=== PATIENT | female | born 1940 | race Caucasian/White ===

== ENCOUNTER 2016-09-22 20:03 | Inpatient (IN) | payer MEDICARE, BC ==
[~2016-09-22] VITALS: Ht 152.4 cm; Wt 88.8 kg
[~2016-09-22 20:03] MED LIST: AMLO2.5T PO; ASPI81 PO; ATOR10 PO; B COTAB3 PO; CELE20TA PO; DICL75 PO; ENAL2.5 PO; GLIP5 PO; LOPE2 PO; SITA100 PO; WAL-10TA2 PO; [UNRECOGNIZED DRUG - CODE] PO
[2016-09-22 20:05] VITALS: BP 138/79; PULSE 95; RESP 16; TEMP 98.1; O2SAT 96
[2016-09-22 20:29] VITALS: BP 135/77; PULSE 90; RESP 18; O2SAT 96
[2016-09-22] MEDS ORDERED: SITA1TAB2 PO (20:37)
[2016-09-22] MEDS ORDERED: GLIP5TAB8 PO (20:37)
[2016-09-22] MEDS ORDERED: MELA10CA PO (20:37)
[2016-09-22] MEDS ORDERED: AMLO5TAB2 PO (20:37)
[2016-09-22] MEDS ORDERED: XIFA200T4 PO (20:37)
[2016-09-22] MEDS ORDERED: [UNRECOGNIZED DRUG - CODE] PO (20:37)
[2016-09-22] MEDS ORDERED: ATOR10TA15 PO (20:37)
[2016-09-22] MEDS ORDERED: LORA10TA PO (20:37)
[2016-09-22] MEDS ORDERED: CITA20TA4 PO (20:37)
[2016-09-22] MEDS ORDERED: ERGO1CAP10 PO (20:37)
[2016-09-22] MEDS ORDERED: ENAL2.5T PO (20:37)
[2016-09-22] MEDS ORDERED: SODIUM CHLOR 0.9% 1000 ML INJ 1,000 ML IV SCH (20:50)
--- NOTE | 2016-09-22 20:55 | PD ---
HPI Chief Complaint: GI Complaint Time Seen by Provider: 20:52 Travel History International Travel<30 days: No Contact w/Intl Traveler<30days: No Traveled to known affect area: No History of Present Illness HPI 76-year-old female presents to the emergency department for evaluation of rectal bleeding. Patient states she has had bright red blood and dark red blood per the rectum since 1 PM this afternoon. She reports history of emphysema, diabetes, IBS. She states she has had over 30 episodes of diarrhea today. She states the diarrhea is typical for her, but not this bad. She states that she has had quite a bit of bright red bleeding and dark red blood per rectum. She states that her internal control consultant is Dr. Galeas. She denies any lightheadedness, dizziness. No chest pain or shortness of breath. No fevers or chills. She states that she has had similar symptoms previously and bleeding was due to diverticulosis. She denies any abdominal pain. No nausea or vomiting. PFSH Past Medical History Arthritis: Yes Blood Disorders: No Depression: Yes Cancer: No Cardiovascular Problems: No High Cholesterol: Yes Diabetes: Yes Patient Takes Glucophage: No Diminished Hearing: No Gastrointestinal Disorders: Yes (RECTAL BLEEDING, IBS) Genitourinary: No Hypertension: Yes Immune Disorder: No Musculoskeletal: No Neurologic: No Psychiatric: No Reproductive: No Respiratory: Yes (EMPHYSEMA) Influenza Vaccination: Yes Menopausal: Yes Ovarian Cysts: Yes Past Surgical History Abdominal Surgery: Yes (UMBILICAL HERNIA) Gynecologic Surgery: Yes (OVARY REMOVED) Other Surgery: Yes (NEUROMA REMOVED LEFT FOOT) Social History Alcohol Use: No Tobacco Use: No Substance Use: No Allergies-Medications (Allergen,Severity, Reaction): Coded Allergies: Flagyl (Verified Adverse Reaction, Intermediate, NAUSEA, 09/22/16) Reported Meds & Prescriptions Reported Meds & Active Scripts Active Reported Melatonin 10 Mg Cap PO DAILY Vitamin D (Ergocalciferol) 50,000 Unit Cap 50,000 Units PO Q7D Atorvastatin (Atorvastatin Calcium) 10 Mg Tab 10 Mg PO HS Citalopram (Citalopram Hydrobromide) 20 Mg Tab 20 Mg PO DAILY Amlodipine (Amlodipine Besylate) 5 Mg Tab 5 Mg PO DAILY Januvia (Sitagliptin Phosphate) 100 Mg Tab 100 Mg PO DAILY Imodium A-D Liq (Loperamide HCl) 1 Mg/7.5 Ml Liq 2 Mg PO DIRECTED PRN 2 mg (15 mL) after each loose stool. Not to exceed 16 mg (120 mL) per day. Glipizide 5 Mg Tab 5 Mg PO DAILY Take 30 minutes before a meal Enalapril (Enalapril Maleate) 2.5 Mg Tab 2.5 Mg PO DAILY Loratadine 10 Mg Tab 10 Mg PO DAILY Xifaxan (Rifaximin) 200 Mg Tab 200 Mg PO DAILY Review of Systems Except as stated in HPI: all other systems reviewed are Neg Physical Exam Narrative GENERAL: Well-nourished, well-developed female patient, ambulatory. Afebrile. SKIN: Focused skin assessment warm/dry. HEAD: Normocephalic. Atraumatic. EYES: No scleral icterus. No injection or drainage. NECK: Supple, trachea midline. No JVD or lymphadenopathy. CARDIOVASCULAR: Regular rate and rhythm without murmurs, gallops, or rubs. RESPIRATORY: Breath sounds equal bilaterally. No accessory muscle use. Lungs sounds are clear to auscultation. GASTROINTESTINAL: Abdomen soft, non-tender, nondistended. No abdominal pain to palpation. MUSCULOSKELETAL: No cyanosis, or edema. RECTAL EXAM: No masses or tenderness, stool is dark red. Hemoccult is grossly positive. This was done with nurse at bedside. Data Data Last Documented VS Vital Signs Date Time Temp Pulse Resp B/P Pulse Ox O2 Delivery O2 Flow Rate FiO2 09/22/16 20:29 90 18 135/77 96 Room Air 09/22/16 20:05 98.1 Orders Complete Blood Count With Diff (09/22/16 20:50) Comprehensive Metabolic Panel (09/22/16 20:50) Prothrombin Time / Inr (Pt) (09/22/16 20:50) Act Partial Throm Time (Ptt) (09/22/16 20:50) Urinalysis - C+S If Indicated (09/22/16 20:50) Type And Screen (09/22/16 20:50) Ecg Monitoring (09/22/16 20:50) Iv Access Insert/Monitor (09/22/16 20:50) Oximetry (09/22/16 20:50) Pantoprazole Inj (Protonix Inj) (09/22/16 21:00) Sodium Chlor 0.9% 1000 Ml Inj (Ns 1000 M (09/22/16 20:50) Sodium Chloride 0.9% Flush (Ns Flush) (09/22/16 21:00) Urine Culture (09/22/16 21:15) Ceftriaxone Inj (Rocephin Inj) (09/22/16 22:15) Labs Laboratory Tests Test 09/22/16 21:15 White Blood Count 15.7 TH/MM3 Red Blood Count 4.67 MIL/MM3 Hemoglobin 13.4 GM/DL Hematocrit 39.2 % Mean Corpuscular Volume 83.8 FL Mean Corpuscular Hemoglobin 28.7 PG Mean Corpuscular Hemoglobin 34.2 % Concent Red Cell Distribution Width 12.9 % Platelet Count 282 TH/MM3 Mean Platelet Volume 9.4 FL Neutrophils (%) (Auto) 69.7 % Lymphocytes (%) (Auto) 21.1 % Monocytes (%) (Auto) 7.4 % Eosinophils (%) (Auto) 1.1 % Basophils (%) (Auto) 0.7 % Neutrophils # (Auto) 11.0 TH/MM3 Lymphocytes # (Auto) 3.3 TH/MM3 Monocytes # (Auto) 1.2 TH/MM3 Eosinophils # (Auto) 0.2 TH/MM3 Basophils # (Auto) 0.1 TH/MM3 CBC Comment DIFF FINAL Differential Comment Prothrombin Time 11.4 SEC Prothromb Time International 1.0 RATIO Ratio Activated Partial 22.7 SEC Thromboplast Time Urine Color YELLOW Urine Turbidity HAZY Urine pH 5.5 Urine Specific [place] 1.022 Urine Protein TRACE mg/dL Urine Glucose (UA) NEG mg/dL Urine Ketones TRACE mg/dL Urine Occult Blood SMALL Urine Nitrite NEG Urine Bilirubin NEG Urine Urobilinogen LESS THAN 2.0 MG/DL Urine Leukocyte Esterase LARGE Urine RBC 12 /hpf Urine WBC /hpf Urine Squamous Epithelial 7 /hpf Cells Urine Transitional Epithelial 2 /hpf Cells Urine Renal Epithelial Cells <1 /hpf Urine Bacteria RARE /hpf Urine Mucus FEW /lpf Microscopic Urinalysis Comment CULTURE INDICATED Sodium Level 135 MEQ/L Potassium Level 4.3 MEQ/L Chloride Level 100 MEQ/L Carbon Dioxide Level 21.7 MEQ/L Anion Gap 13 MEQ/L Blood Urea Nitrogen 21 MG/DL Creatinine 0.87 MG/DL Estimat Glomerular Filtration 64 ML/MIN Rate Random Glucose 202 MG/DL Calcium Level 9.1 MG/DL Total Bilirubin 0.5 MG/DL Aspartate Amino Transf 20 U/L (AST/SGOT) Alanine Aminotransferase 32 U/L (ALT/SGPT) Alkaline Phosphatase 93 U/L Total Protein 8.0 GM/DL Albumin 3.8 GM/DL Blood Type B POSITIVE Antibody Screen NEGATIVE MDM Medical Decision Making Medical Screen Exam Complete: Yes Emergency Medical Condition: Yes Medical Record Reviewed: Yes Differential Diagnosis GI bleed versus diverticulosis versus anemia Narrative Course 76-year-old female presents to the emergency department for evaluation of rectal bleeding started at 1 PM this afternoon. Patient reports history of rectal bleeding and IBS. She states she is due for colonoscopy this year. CBC , CMP, PTT, PTT/INR, type and screen are ordered and pending. Patient is given Protonix 40 mg IV and normal saline 1 L IV bolus. CBC shows leukocytosis of 15.7. CMP shows no acute abnormality. Coags are unremarkable. UA shows large leukocyte esterase, innumerable WBC. Patient reports continuing blood via her rectum while in the emergency department. Patient will be brought in for 23 hour observation for repeat H&H as well as GI consult. Patient is given Rocephin 1 g IV for UTI. Patient is agreeable to this plan. [facility] is paged for admission. DARYL Portillo accepted admission. [facility] Point of Care Internal Pos. & Neg. Controls: Passed Fecal Specimen Occult Blood: Positive Diagnosis Primary Impression: GI bleed Qualified Code: K92.2 - Gastrointestinal hemorrhage, unspecified gastrointestinal hemorrhage type Additional Impression: UTI (urinary tract infection) Qualified Code: N30.01 - Acute cystitis with hematuria Admitting Information Admitting Physician Requests: Observation Grace Hunter Sep 22, 2016 20:55
[2016-09-22] MEDS ORDERED: SODIUM CHLORIDE 0.9% FLUSH 10 ML FLUSH IVF PRN (21:00)
[2016-09-22] MEDS ORDERED: PANTOPRAZOLE SODIUM 40 MG VIAL IVP ONE (21:00)
[2016-09-22 21:34] LABS: BASOPHIL # 0.1 TH/MM3 (0-0.2); BASOPHIL % 0.7 % (0.0-2.0); EOSINOPHIL # 0.2 TH/MM3 (0-0.4); EOSINOPHIL % 1.1 % (0.0-4.0); HEMATOCRIT 39.2 % (35.0-46.0); HEMO FLAGS DIFF FINAL; LYMPH % 21.1 % (9.0-44.0); LYMPHOCYTE # 3.3 TH/MM3 (1.0-4.8); MEAN CELL VOLUME 83.8 FL (80.0-100.0); MEAN CORPUSCULAR HEMOGLOBIN 28.7 PG (27.0-34.0); MEAN CORPUSCULAR HGB CONC 34.2 % (32.0-36.0); MONO % 7.4 % (0.0-8.0); NEUT % 69.7 % (16.0-70.0); PLATELET COUNT 282 TH/MM3 (150-450); RED BLOOD COUNT 4.67 MIL/MM3 (4.00-5.30); RED CELL DISTRIBUTION WIDTH 12.9 % (11.6-17.2); WHITE BLOOD COUNT 15.7 TH/MM3 (4.0-11.0)
[2016-09-22 21:44] LABS: BACTERIA, URINE RARE /hpf; BLOOD, URINE SMALL (NEG); COMMENT (UR) CULTURE INDICATED; CULTURE IF INDICATED CULTURE INDICATED; GLUCOSE,URINE NEG (NEG); KETONE, URINE TRACE mg/dL (NEG); MUCUS URINE FEW /lpf (OCC); NITRITE,URINE NEG (NEG); PH, URINE 5.5 (5.0-8.5); RENAL EPITHELIAL CELLS <1 /hpf; SQUAMOUS EPITHELIAL CELL URINE 7 /hpf (0-5); TRANSITIONAL EPI CELLS, URINE 2 /hpf; URINE COLOR YELLOW (YELLW/STRAW)
[2016-09-22 21:45] LABS: APTT (PATIENT) 22.7 SEC (24.3-30.1); PROTHROMBIN TIME - PATIENT 11.4 SEC (9.8-11.6)
[2016-09-22 21:53] LABS: ANION GAP 13 MEQ/L (5-15); BICARBONATE 21.7 MEQ/L (21.0-32.0); BLOOD UREA NITROGEN 21 MG/DL (7-18); CHLORIDE 100 MEQ/L (98-107); GLOMERULAR FILTRATION RATE 64 ML/MIN (>89); POTASSIUM 4.3 MEQ/L (3.5-5.1); SODIUM (NA) 135 MEQ/L (136-145)
[2016-09-22 21:56] LABS: ALKALINE PHOSPHATASE 93 U/L (45-117); ALT (GPT) 32 U/L (10-53); AST (GOT) 20 U/L (15-37); TOTAL BILIRUBIN ADULT 0.5 MG/DL (0.2-1.0)
[2016-09-22] MEDS ORDERED: cefTRIAXone INJ 1,000 MG in SODIUM CHLORIDE 0.9% INJ 100 ML IV ONE (22:15)
[2016-09-22 22:33] VITALS: RESP 18; O2SAT 100
[2016-09-23 00:44] VITALS: BP 136/78; PULSE 88; RESP 20; TEMP 98.2; O2SAT 98
[2016-09-23] MEDS ORDERED: SODIUM CHLORIDE 0.9% FLUSH 10 ML FLUSH IV FLUSH PRN (01:15)
[2016-09-23] MEDS ORDERED: cefTRIAXone INJ 1,000 MG in SODIUM CHLORIDE 0.9% INJ 100 ML IV SCH (01:15)
[2016-09-23] MEDS ORDERED: ACETAMINOPHEN 325 MG TAB PO PRN (01:15)
[2016-09-23] MEDS ORDERED: ONDANSETRON HCL 4 MG/2 ML VIAL IVP PRN (01:15)
[2016-09-23] MEDS ORDERED: NALOXONE HCL 0.4 MG/ML AMP IV PRN (01:15)
[2016-09-23] MEDS: SODIUM CHLOR 0.9% 1000 ML INJ 1,000 ML IV SCH ×3 (02:09→13:44)
[2016-09-23] MEDS: PANTOPRAZOLE SODIUM 40 MG VIAL IV PUSH SCH ×2 (02:27→10:16)
[2016-09-23 04:00] VITALS: BP 115/56; PULSE 84; RESP 20; TEMP 98.4; O2SAT 94
--- NOTE | 2016-09-23 08:08 | MH ---
cc: VANNESSA JACOBSON MD DATE OF ADMISSION 09/22/2016 CHIEF COMPLAINT Rectal bleeding HISTORY OF PRESENT ILLNESS This pleasant 76-year-old female, who has a history of irritable bowel syndrome. She apparently has had one bout of diverticular bleeding in the past several years ago. Last colonoscopy was about five years ago per her recollection. She was in her normal state of health. She states her stools seem to be a little thinner over the last two to three days and today around one o'clock, she developed painless bright red blood per rectum and occasional dark blood. She had no fever or chills. No abdominal pain. No nausea or vomiting. No chest pain. No shortness of breath. No dysuria. No flank pain. She does take a baby aspirin on a regular basis and has doubled up on it recently because of some right arm pain. She takes no other blood thinners. She contacted Dr. Galeas's office and they recommended she come into the hospital. She was seen in the emergency room. She was found to have a UTI and is being admitted for further care. MEDICATIONS ON ADMISSION Please see the chart. ALLERGIES FLAGYL PAST MEDICAL HISTORY Significant for: 1. Degenerative disc disease 2. Diabetes 3. Hyperlipidemia 4. COPD 5. IBS PAST SURGICAL HISTORY 1. Right oophorectomy 2. Abdominal hernia repair 3. Left foot neuroma removed SOCIAL HISTORY . Tobacco, smoked for over 40 years, but quit about 11 years ago. Alcohol, none. FAMILY HISTORY Noncontributory to this admission. REVIEW OF SYSTEMS The patient states her blood sugars run a little bit high. She is overweight, but this has remained stable. She occasionally has some fecal incontinence, but usually takes a half of an Imodium every night and this seems to control it most of the time. She denies any other specific changes in her overall health for 10-point review of systems. PHYSICAL EXAMINATION She is afebrile, heart rate 88, respirations 20, blood pressure 136/78, O2 sats 98% on room air. GENERAL: This is a 76-year-old female resting comfortably in bed in no acute distress. HEAD, EYES, EARS, NOSE, AND THROAT: Mucous membranes are moist. No jaundice. NECK: Supple CARDIOVASCULAR: Regular rate and rhythm. RESPIRATORY: A few scattered wheezes. GASTROINTESTINAL: Bowel sounds are present. No point tenderness, guarding or rebound. GENITOURINARY: No CVA tenderness. No suprapubic tenderness. MUSCULOSKELETAL: No edema. Homans is negative. No obvious deformities. NEUROLOGIC: Awake, alert and oriented x4. Speech was clear and fluent. Moving all extremities freely. INVESTIGATIONS/LABORATORY DATA White count is 15.7, hemoglobin 13.4, platelets are 282, INR is 1. Sodium 135, BUN 21, GFR is estimated at 64, glucose is 202. Urinalysis shows a large amount of leukocyte esterase. Culture is indicated. Urine cultures are pending. IMAGING No imaging studies have been obtained. Blood type is B+. Antibody screen is negative. IMPRESSION 1. Painless rectal bleeding with a history of diverticular Disease. 2. Leukocytosis 3. Urinary tract infection 4. Hyponatremia 5. Diabetes mellitus 6. Hyperlipidemia 7. COPD 8. History of IBS. DISCUSSION The patient is placed on observation status to Dr. Jacobson's service. The plan is to keep her NPO overnight, place her on IV fluids. IV antibiotics have been started in the emergency room. A Proton pump inhibitor will be continued. We will consult her national business director, Dr. Galeas. We will repeat labs in the morning to avoid any anticoagulants or blood thinners and we will make further recommendations as her case progresses. If not further bleeding occurs, then she should be discharge in the next 48 hours (the patient has not had any bleeding since being in the hospital). Please see the chart for further details. Dictated by: Vadim Jones PA-C MD ROSA MARIA Wells/TERESA /1:49 AM /7:48 AM PT is seen & Examined d/w PT d/w Vadim [place] Orders see H&P by vadim GI input appreciated for EGD/ cscope f/u H/H IVF PPI empiric abx accu checks w ssi am labs will f/u Vannessa Jacobson MD Sep 23, 2016 10:44 MTDD
--- NOTE | 2016-09-23 09:52 | MB ---
cc: TANNA GIPSON M.D., STEVEN D. D.O. STELLA, GREGORY J. M.D. DATE OF CONSULTATION: 09/23/[address] Tanna Gipson. HISTORY OF PRESENT ILLNESS The patient is an inpatient. She is a pleasant 76-year-old white female I was asked to see for further evaluation and management of GI bleeding. She had been taking one baby aspirin per day but about three weeks ago because of some right upper extremity pain she started taking two aspirin tablets three times per day. Yesterday she began experiencing passage of red to maroon blood per rectum, no pain or discomfort. She had a previous episode like this in the past and was found to have a diverticular bleed. No lightheadedness or dizziness. She takes no strong blood thinners. MEDICAL HISTORY 1. Degenerative disk disease. 2. Diabetes. 3. Hyperlipidemia. 4. COPD. 5. Mild chronic diarrheal problem. PAST SURGICAL HISTORY 1. Right oophorectomy. 2. Abdominal herniorrhaphy. 3. Left foot neuroma. ALLERGIES FLAGYL. SOCIAL HISTORY Tobacco use: None. Alcohol use: None. FAMILY HISTORY Unremarkable for GI disorders. REVIEW OF SYSTEMS No recent headaches. No history of seizures or strokes. No lightheadedness or dizziness. No dyspnea. No chest pains or palpitations. No coughing. No urinary symptoms. No dysphagia or odynophagia or heartburn. Her weight has been stable. MEDICATIONS Medications here in the hospital include: 1. Ceftriaxone. 2. Pantoprazole IV injection 40 mg per day. 3. Tylenol. 4. Zofran. PHYSICAL EXAMINATION VITAL SIGNS: Physical examination reveals a weight of 99 kilograms, temperature 98.4, pulse 84, blood pressure 115/56, saturation 94%. GENERAL: She is alert. She is oriented x3. She is overweight. HEENT: She is anicteric. Extraocular motions are intact. I appreciate no submandibular, cervical, supraclavicular, axillary epitrochlear adenopathy. Right axillary lipoma is palpable. LUNGS: Lungs are clear to auscultation. HEART: Regular rate and rhythm with no gross murmur or gallop. ABDOMEN: Good bowel sounds. No bruit. The abdomen is soft and essentially nontender with vague discomfort on palpation of the right upper quadrant. No masses or hepatosplenomegaly are noted. No pedal edema, Dupuytren's contractures or palmar erythema. RECTAL: Fair to good sphincter tone. Maroon blood in the rectal vault. LABORATORY FINDINGS On admission last evening with white count 15.7, hemoglobin 13.4, platelets 282, INR 1.0. Sodium 135, potassium 4.3, BUN 21, creatinine 0.87. Liver enzymes normal. IMPRESSION GI bleeding with passage of maroon stool in this patient who recently has been taking six aspirin tablets per day for the past 3 weeks. With the elevated BUN to creatinine ratio we discussed the possibility of an upper GI bleed from ulcer disease with rapid transit. We discussed colonic bleeding especially with her history of diverticular bleeding. We discussed the smaller possibility of a small intestine bleed. Because of the continued bleeding every few hours we will keep her in the hospital. We will prep her today for panendoscopy and colonoscopy tomorrow. I reviewed the procedures with her, including potential risks of medication reaction, bleeding, perforation and a small chance of missing a lesion. She understands and agrees to proceed with this plan. MD CHELLE Sanchez/JAVY /9:23 AM /9:32 AM
[2016-09-23] MEDS: SODIUM CHLORIDE 0.9% FLUSH 10 ML FLUSH IV FLUSH SCH ×2 (10:15→21:00)
--- NOTE | 2016-09-23 10:44 | HHI.PR ---
Objective Objective Results - Vital Signs Date Time Temp Pulse Resp B/P Pulse Ox O2 Delivery O2 Flow Rate FiO2 09/23/16 04:00 Room Air 09/23/16 04:00 98.4 84 20 115/56 94 09/23/16 00:44 Room Air 09/23/16 00:44 98.2 88 20 136/78 98 09/22/16 22:33 18 100 Room Air 09/22/16 20:29 90 18 135/77 96 Room Air 09/22/16 20:05 98.1 95 16 138/79 96 I/O 09/22/16 09/22/16 09/22/16 09/23/16 09/23/16 09/23/16 07:00 15:00 23:00 07:00 15:00 23:00 Intake Total 260 ml Balance 260 ml Intake IV Total 260 ml # Voids 4 1 # Bowel Movements 2 Result Diagram: 09/22/16211409/22/162114 Other Results Laboratory Tests Test 09/22/16 21:15 White Blood Count 15.7 Red Blood Count 4.67 Hemoglobin 13.4 Hematocrit 39.2 Mean Corpuscular Volume 83.8 Mean Corpuscular Hemoglobin 28.7 Mean Corpuscular Hemoglobin 34.2 Concent Red Cell Distribution Width 12.9 Platelet Count 282 Mean Platelet Volume 9.4 Neutrophils (%) (Auto) 69.7 Lymphocytes (%) (Auto) 21.1 Monocytes (%) (Auto) 7.4 Eosinophils (%) (Auto) 1.1 Basophils (%) (Auto) 0.7 Neutrophils # (Auto) 11.0 Lymphocytes # (Auto) 3.3 Monocytes # (Auto) 1.2 Eosinophils # (Auto) 0.2 Basophils # (Auto) 0.1 CBC Comment DIFF FINAL Differential Comment Prothrombin Time 11.4 Prothromb Time International 1.0 Ratio Activated Partial 22.7 Thromboplast Time Urine Color YELLOW Urine Turbidity HAZY Urine pH 5.5 Urine Specific [place] 1.022 Urine Protein TRACE Urine Glucose (UA) NEG Urine Ketones TRACE Urine Occult Blood SMALL Urine Nitrite NEG Urine Bilirubin NEG Urine Urobilinogen LESS THAN 2.0 Urine Leukocyte Esterase LARGE Urine RBC 12 Urine WBC Urine Squamous Epithelial 7 Cells Urine Transitional Epithelial 2 Cells Urine Renal Epithelial Cells <1 Urine Bacteria RARE Urine Mucus FEW Microscopic Urinalysis Comment CULTURE INDICATED Sodium Level 135 Potassium Level 4.3 Chloride Level 100 Carbon Dioxide Level 21.7 Anion Gap 13 Blood Urea Nitrogen 21 Creatinine 0.87 Estimat Glomerular Filtration 64 Rate Random Glucose 202 Calcium Level 9.1 Total Bilirubin 0.5 Aspartate Amino Transf 20 (AST/SGOT) Alanine Aminotransferase 32 (ALT/SGPT) Alkaline Phosphatase 93 Total Protein 8.0 Albumin 3.8 Blood Type B POSITIVE Antibody Screen NEGATIVE Date/Time Procedure Status Source Growth 09/22/16 21:15 Urine Culture Received Urine Random Urine Pending Physical Exam Physical Exam PT is seen & Examined d/w PT d/w Vadim See Orders see H&P by vadim GI input appreciated for EGD/ cscope f/u H/H IVF PPI empiric abx accu checks w ssi am labs will f/u Sunitha Jacobson MD Sep 23, 2016 10:44
[2016-09-23] MEDS ORDERED: GLUCAGON 1 MG/ML VIAL OTHER PRN (10:45)
[2016-09-23] MEDS ORDERED: DEXTROSE 50% IN WATER 50 ML VIAL(D50) IV PUSH PRN (10:45)
[2016-09-23] MEDS ORDERED: PEG (High)/E-LYTE SOLN 4000 ML BTL PO ONE (11:00)
[2016-09-23 11:23] VITALS: BP 142/67; PULSE 97; RESP 18; O2SAT 96
[2016-09-23] MEDS: INSULIN ASPART SUPPLEMENTAL SCALE SQ SCH ×3 (11:38→21:02)
[2016-09-23 12:30] LABS: HEMATOCRIT 28.1 % (35.0-46.0); REVIEW FLAG FINAL
[2016-09-23 16:30] VITALS: BP 134/58; PULSE 95; RESP 18; TEMP 98.8; O2SAT 94
[2016-09-23 20:00] VITALS: BP 139/67; PULSE 100; RESP 18; TEMP 98.6; O2SAT 95
[2016-09-23] MEDS: ATORVASTATIN 10 MG TAB PO SCH (20:59)
[2016-09-23] MEDS: cefTRIAXone INJ 1,000 MG in SODIUM CHLORIDE 0.9% INJ 100 ML IV SCH (21:00)
[2016-09-24] VITALS (8 sets, daily range): BP systolic 106–148; BP diastolic 52–65; PULSE 84–104; RESP 16–20; TEMP 97.6–98.9; O2SAT 94–98
[2016-09-24] MEDS: INSULIN ASPART SUPPLEMENTAL SCALE SQ SCH ×4 (06:01→21:06)
[2016-09-24] MEDS: SODIUM CHLOR 0.9% 1000 ML INJ 1,000 ML IV SCH (06:02)
[2016-09-24 06:49] LABS: AUTOMATED NEUTROPHIL # 5.9 TH/MM3 (1.8-7.7); BASOPHIL # 0.1 TH/MM3 (0-0.2); BASOPHIL % 0.7 % (0.0-2.0); EOSINOPHIL # 0.1 TH/MM3 (0-0.4); EOSINOPHIL % 0.9 % (0.0-4.0); HEMATOCRIT 22.3 % (35.0-46.0); HEMO FLAGS DIFF FINAL; LYMPH % 34.4 % (9.0-44.0); LYMPHOCYTE # 3.6 TH/MM3 (1.0-4.8); MEAN CELL VOLUME 84.7 FL (80.0-100.0); MEAN CORPUSCULAR HEMOGLOBIN 28.8 PG (27.0-34.0); MEAN CORPUSCULAR HGB CONC 34.1 % (32.0-36.0); MONO % 7.6 % (0.0-8.0); NEUT % 56.4 % (16.0-70.0); PLATELET COUNT 197 TH/MM3 (150-450); RED BLOOD COUNT 2.63 MIL/MM3 (4.00-5.30); RED CELL DISTRIBUTION WIDTH 12.5 % (11.6-17.2); WHITE BLOOD COUNT 10.4 TH/MM3 (4.0-11.0)
[2016-09-24 06:54] LABS: BICARBONATE 23.5 MEQ/L (21.0-32.0); POTASSIUM 3.6 MEQ/L (3.5-5.1)
[2016-09-24] MEDS ORDERED: PROPOFOL 200 MG/20 ML AMP IV ONE (10:02)
[2016-09-24] MEDS: CITALOPRAM HYDROBROMIDE 20 MG TAB PO SCH (10:21)
[2016-09-24] MEDS: amLODIPine BESYLATE 5 MG TAB PO SCH (10:21)
[2016-09-24] MEDS: RIFAXIMIN 200 MG TAB PO SCH (10:21)
[2016-09-24] MEDS: LORATADINE 10 MG TAB PO SCH (10:21)
[2016-09-24] MEDS: PANTOPRAZOLE SODIUM 40 MG VIAL IV PUSH SCH (10:22)
[2016-09-24] MEDS: SODIUM CHLORIDE 0.9% FLUSH 10 ML FLUSH IV FLUSH SCH ×2 (10:22→21:05)
--- NOTE | 2016-09-24 12:33 | HHI.PR ---
Subjective Subjective Remarks had EGD and colonoscopy today small amount of blood in stool today no n/v tolerating clear liquid diet well no abd. pain no cp no sob pale Review of Systems Constitutional Constitutional Remarks 12 point ROS completed, negative except as noted above Vitals/Results Intake & Output 09/23/16 09/23/16 09/24/16 14:59 22:59 06:59 Intake Total 800 ml 800 ml Balance 800 ml 800 ml Intake IV Total 800 ml 800 ml # Voids 1 3 # Bowel Movements 2 3 Vital Signs Vital Signs Date Time Temp Pulse Resp B/P Pulse Ox O2 Delivery O2 Flow Rate FiO2 09/24/16 09:35 77 16 101/57 96 09/24/16 09:25 78 16 106/60 96 09/24/16 09:15 98.7 79 16 99/51 96 09/24/16 04:00 98.7 86 18 131/59 95 09/24/16 00:00 98.7 92 18 106/52 95 09/23/16 20:00 98.6 100 18 139/67 95 09/23/16 20:00 Room Air 09/23/16 17:00 Room Air 09/23/16 16:30 98.8 95 18 134/58 94 CBC/BMP: 09/24/16 0555 09/24/16 0555 Lab Results Laboratory Tests Test 09/24/16 05:55 White Blood Count 10.4 TH/MM3 Red Blood Count 2.63 MIL/MM3 Hemoglobin 7.6 GM/DL Hematocrit 22.3 % Mean Corpuscular Volume 84.7 FL Mean Corpuscular Hemoglobin 28.8 PG Mean Corpuscular Hemoglobin 34.1 % Concent Red Cell Distribution Width 12.5 % Platelet Count 197 TH/MM3 Mean Platelet Volume 8.5 FL Neutrophils (%) (Auto) 56.4 % Lymphocytes (%) (Auto) 34.4 % Monocytes (%) (Auto) 7.6 % Eosinophils (%) (Auto) 0.9 % Basophils (%) (Auto) 0.7 % Neutrophils # (Auto) 5.9 TH/MM3 Lymphocytes # (Auto) 3.6 TH/MM3 Monocytes # (Auto) 0.8 TH/MM3 Eosinophils # (Auto) 0.1 TH/MM3 Basophils # (Auto) 0.1 TH/MM3 CBC Comment DIFF FINAL Differential Comment Sodium Level 140 MEQ/L Potassium Level 3.6 MEQ/L Chloride Level 107 MEQ/L Carbon Dioxide Level 23.5 MEQ/L Anion Gap 10 MEQ/L Blood Urea Nitrogen 11 MG/DL Creatinine 0.63 MG/DL Estimat Glomerular Filtration 92 ML/MIN Rate Random Glucose 165 MG/DL Calcium Level 8.3 MG/DL Physical Exam General General Appearance: Well Developed, Well Nourished, No Acute Distress, Comfortable, Pale Eyes Eye Exam: Pupils Equal, Pupils Reactive Ears & Nose Ears & Nose Exam: Nasal Mucosa [place] Throat Throat Exam: Oral Mucosa [place] & Moist Neck Neck Exam: Neck Supple, Trachea Midline Pulmonary Resp Exam: Clear Bilaterally Cardiology CV Exam: Regular, Good Perfusion Gastrointestinal/Abdomen GI Exam: Soft, Non-Tender, Bowel Sounds Present, Non-Distended Musculoskeletal MS Exam: Joints Intact Integumentary Skin Exam: Warm, Dry Extremeties Extremities Exam: No Edema, Pedal Pulses Palpable Neurologic Neuro Exam: Alert, Awake, Oriented, Speech Clear, Moving All Extremities, No Focal Deficits Psychiatric Psych Exam: Appropriate Responses VTE Prophylaxis VTE Prophylaxis Device: SCDs PUD Prophylasis PUD Prophylaxis: Protonix Assessment/Plan Problem List: (1) UTI (urinary tract infection) (2) GI bleed Assessment/Plan 1. Painless rectal bleeding with a history of diverticular Disease. 2. Leukocytosis 3. Urinary tract infection 4. Hyponatremia 5. Diabetes mellitus 6. Hyperlipidemia 7. COPD 8. History of IBS. Plan: appreciate GI input S/P colonoscopy and EGD 09/24, gastric erosion, diverticulosis. No active bleeding capsule endoscopy as OP recommended HH dropped today 7.6/22.3, will give 2 units PRBC today CBC in am continue clear liquid diet continue PPI Continue abx UC mixed dillan, poss. contaminant Continue with Accu-Cheks before meals and at bedtime and insulin therapy Continue with home medications CBC and BMP in the morning Continue with Protonix for GI prophylaxis SCDs for DVT prophylaxis Possible discharge in the morning if hemoglobin stable D/W RN D/W Dr. Jacobson D/W pt. This patient was seen by myself and Dr. Jacobson, this note is written on his behalf Problem Qualifiers (1) UTI (urinary tract infection): Qualified Code: N30.01 - Acute cystitis with hematuria (2) GI bleed: Qualified Code: K92.2 - Gastrointestinal hemorrhage, unspecified gastrointestinal hemorrhage type Pham RodriguezP Sep 24, 2016 12:33
[2016-09-24] MEDS ORDERED: FUROSEMIDE 20 MG/2 ML VIAL IV ONE (12:45)
[2016-09-24] MEDS ORDERED: SODIUM CHLOR 0.9% 250 ML INJ 250 ML IV ONE (12:45)
[2016-09-24] MEDS: cefTRIAXone INJ 1,000 MG in SODIUM CHLORIDE 0.9% INJ 100 ML IV SCH (21:05)
[2016-09-24] MEDS: ATORVASTATIN 10 MG TAB PO SCH (21:05)
[2016-09-25 00:01] VITALS: BP 117/56; PULSE 84; RESP 20; TEMP 98.5; O2SAT 96
[2016-09-25 00:13] VITALS: BP 155/72; PULSE 83; RESP 18; TEMP 98.2; O2SAT 96
[2016-09-25 03:50] VITALS: BP 134/61; PULSE 80; RESP 16; TEMP 98.3; O2SAT 95
[2016-09-25 04:00] VITALS: BP 122/88; PULSE 76; RESP 20; TEMP 98.4; O2SAT 98
[2016-09-25] MEDS: INSULIN ASPART SUPPLEMENTAL SCALE SQ SCH ×2 (06:01→12:26)
[2016-09-25 08:00] VITALS: BP 123/75; PULSE 86; RESP 16; TEMP 98.5; O2SAT 94
[2016-09-25 08:30] LABS: HEMATOCRIT 30.3 % (35.0-46.0); MEAN CELL VOLUME 83.7 FL (80.0-100.0); MEAN CORPUSCULAR HEMOGLOBIN 28.6 PG (27.0-34.0); MEAN CORPUSCULAR HGB CONC 34.2 % (32.0-36.0); PLATELET COUNT 220 TH/MM3 (150-450); RED BLOOD COUNT 3.62 MIL/MM3 (4.00-5.30); REVIEW FLAG FINAL; WHITE BLOOD COUNT 11.4 TH/MM3 (4.0-11.0)
[2016-09-25 08:58] LABS: BICARBONATE 26.1 MEQ/L (21.0-32.0); POTASSIUM 3.2 MEQ/L (3.5-5.1)
[2016-09-25] MEDS: RIFAXIMIN 200 MG TAB PO SCH (08:59)
[2016-09-25] MEDS: CITALOPRAM HYDROBROMIDE 20 MG TAB PO SCH (08:59)
[2016-09-25] MEDS: PANTOPRAZOLE SODIUM 40 MG VIAL IV PUSH SCH (09:00)
[2016-09-25] MEDS: LORATADINE 10 MG TAB PO SCH (09:00)
[2016-09-25] MEDS: amLODIPine BESYLATE 5 MG TAB PO SCH (09:00)
[2016-09-25] MEDS: SODIUM CHLORIDE 0.9% FLUSH 10 ML FLUSH IV FLUSH SCH (09:01)
[2016-09-25] MEDS ORDERED: PROT40TA PO (11:21)
--- NOTE | 2016-09-25 11:22 | HHI.DCPOC ---
Discharge Care Plan Diagnosis: (1) UTI (urinary tract infection) (2) GI bleed Your Health Problems Are: Appetite Changes Bleeding Tendency Goals to Promote Your Health * To prevent worsening of your condition and complications * To maintain your health at the optimal level Directions to Meet Your Goals Take your medications as prescribed Follow your dietary instruction Follow activity as directed Keep your appointments as scheduled Take your immunizations and boosters as scheduled If your symptoms worsen call your PCP, if no PCP go to Urgent Care Center or Emergency Room Smoking is Dangerous to Your Health. Avoid second hand smoke Call the 24-hour hour crisis hotline for domestic abuse at [facility]am Rodriguez. [facility] Sep 25, 2016 11:22
--- NOTE | 2016-09-25 11:26 | HHI.PR ---
Subjective Subjective Remarks no bloody stools no abd. pain no n/v no fever HH up to 12./37.1 no cp, no sob at bsd Review of Systems Constitutional Constitutional Remarks 12 point ROS completed, negative except as noted above Vitals/Results Intake & Output 09/24/16 09/24/16 09/25/16 15:00 23:00 07:00 Intake Total 1300 ml 80 ml 120 ml Balance 1300 ml 80 ml 120 ml Intake Oral 80 ml 120 ml IV Total 900 ml Other 400 ml # Voids 1 1 # Bowel Movements 1 Vital Signs Vital Signs Date Time Temp Pulse Resp B/P Pulse Ox O2 Delivery O2 Flow Rate FiO2 09/25/16 10:11 Room Air 09/25/16 08:00 98.5 86 16 123/75 94 09/25/16 04:00 98.4 76 20 122/88 98 09/25/16 03:50 98.3 80 16 134/61 95 09/25/16 00:13 98.2 83 18 155/72 96 09/25/16 00:01 98.5 84 20 117/56 96 09/24/16 23:56 98.5 84 20 117/56 96 09/24/16 21:00 98.2 87 16 124/60 96 09/24/16 20:00 98.9 87 16 148/65 94 09/24/16 20:00 Room Air 09/24/16 17:16 98.9 88 16 123/60 98 09/24/16 16:48 98.5 96 16 141/62 96 09/24/16 16:00 97.6 104 19 125/63 96 CBC/BMP: 09/25/16 0710 09/25/16 0710 Lab Results Laboratory Tests Test 09/24/16 09/25/16 12:46 07:10 Blood Type B POSITIVE Crossmatch Leukocyte-Reduced Red Blood Cells Blood Bank Comment White Blood Count 11.4 TH/MM3 Red Blood Count 3.62 MIL/MM3 Hemoglobin 10.4 GM/DL Hematocrit 30.3 % Mean Corpuscular Volume 83.7 FL Mean Corpuscular Hemoglobin 28.6 PG Mean Corpuscular Hemoglobin 34.2 % Concent Red Cell Distribution Width 13.0 % Platelet Count 220 TH/MM3 Mean Platelet Volume 8.4 FL Sodium Level 138 MEQ/L Potassium Level 3.2 MEQ/L Chloride Level 104 MEQ/L Carbon Dioxide Level 26.1 MEQ/L Anion Gap 8 MEQ/L Blood Urea Nitrogen 7 MG/DL Creatinine 0.76 MG/DL Estimat Glomerular Filtration 74 ML/MIN Rate Random Glucose 160 MG/DL Calcium Level 8.4 MG/DL Physical Exam General General Appearance: Well Developed, Well Nourished, No Acute Distress, Comfortable, Pale Eyes Eye Exam: Pupils Equal, Pupils Reactive Ears & Nose Ears & Nose Exam: Nasal Mucosa [place] Throat Throat Exam: Oral Mucosa [place] & Moist Neck Neck Exam: Neck Supple, Trachea Midline Pulmonary Resp Exam: Clear Bilaterally Cardiology CV Exam: Regular, Good Perfusion Gastrointestinal/Abdomen GI Exam: Soft, Non-Tender, Bowel Sounds Present, Non-Distended Musculoskeletal MS Exam: Joints Intact Integumentary Skin Exam: Warm, Dry Extremeties Extremities Exam: No Edema, Pedal Pulses Palpable Neurologic Neuro Exam: Alert, Awake, Oriented, Speech Clear, Moving All Extremities, No Focal Deficits Psychiatric Psych Exam: Appropriate Responses VTE Prophylaxis VTE Prophylaxis Device: SCDs PUD Prophylasis PUD Prophylaxis: Protonix Assessment/Plan Problem List: (1) UTI (urinary tract infection) (2) GI bleed Assessment/Plan 1. Painless rectal bleeding with a history of diverticular Disease. 2. Leukocytosis 3. Urinary tract infection 4. Hyponatremia 5. Diabetes mellitus 6. Hyperlipidemia 7. COPD 8. History of IBS. Plan: appreciate GI input S/P colonoscopy and EGD 09/24, gastric erosion, diverticulosis. No active bleeding capsule endoscopy as OP recommended HH dropped 7.6/22.3, S/P 2 units PRBC 09/24 HH up to 12.3/37.1 continue PPI avoid nuts, popcorn adv diet no more rectal bleeding, HH stable. Continue abx-no need for PO abx at discharge UC mixed dillan, poss. contaminant Continue with Accu-Cheks before meals and at bedtime and insulin therapy Continue with home medications Labs reviewed stable Tolerating diet, no bleeding stable for discharge home F/U GI 2 weeks, need capsule endoscopy Diet-diverticulitis diet, verbalizes understanding Activity-as tolerated Instructed to continue PPI, avoid NSAIDs, ASA D/W RN D/W Dr. Jacobson D/W pt. and This patient was seen by myself and Dr. Jacobson, this note is written on his behalf Discharge Minutes: 45 Problem Qualifiers (1) UTI (urinary tract infection): Qualified Code: N30.01 - Acute cystitis with hematuria (2) GI bleed: Qualified Code: K92.2 - Gastrointestinal hemorrhage, unspecified gastrointestinal hemorrhage type Pham Rodriguez [facility] Sep 25, 2016 11:26
--- NOTE | 2016-09-25 11:27 | HHI.DS ---
Discharge Summary Admission Date Sep 24, 2016 at 09:42 Discharge Date: Sep 25, 2016 Admitting Diagnosis GI bleed, UTI (1) GI bleed Diagnosis: Principal (2) UTI (urinary tract infection) Procedures S/P colonoscopy and EGD 09/24, gastric erosion, diverticulosis. No active bleeding CBC/BMP: 09/25/16 0710 09/25/16 0710 Significant Findings Laboratory Tests Test 09/22/16 09/23/16 09/24/16 09/25/16 21:15 11:59 05:55 07:10 White Blood Count 15.7 TH/MM3 11.4 TH/MM3 (4.0-11.0) (4.0-11.0) Neutrophils # (Auto) 11.0 TH/MM3 (1.8-7.7) Monocytes # (Auto) 1.2 TH/MM3 (0-0.9) Activated Partial 22.7 SEC Thromboplast Time (24.3-30.1) Urine Turbidity HAZY (CLEAR) Urine Ketones TRACE mg/dL (NEG) Urine Occult Blood SMALL (NEG) Urine Leukocyte Esterase LARGE (NEG) Urine RBC 12 /hpf (0-3) Urine Bacteria RARE /hpf (NONE) Urine Mucus FEW /lpf (OCC) Sodium Level 135 MEQ/L (136-145) Blood Urea Nitrogen 21 MG/DL (7-18) Estimat Glomerular Filtration 64 ML/MIN (>89) 74 ML/MIN (>89) Rate Random Glucose 202 MG/DL 165 MG/DL 160 MG/DL (74-106) (74-106) (74-106) Hemoglobin 9.8 GM/DL 7.6 GM/DL 10.4 GM/DL (11.6-15.3) (11.6-15.3) (11.6-15.3) Hematocrit 28.1 % 22.3 % 30.3 % (35.0-46.0) (35.0-46.0) (35.0-46.0) Red Blood Count 2.63 MIL/MM3 3.62 MIL/MM3 (4.00-5.30) (4.00-5.30) Calcium Level 8.3 MG/DL 8.4 MG/DL (8.5-10.1) (8.5-10.1) Potassium Level 3.2 MEQ/L (3.5-5.1) Hospital Course This pleasant 76-year-old female, who has a history of irritable bowel syndrome. She apparently has had one bout of diverticular bleeding in the past several years ago. Last colonoscopy was about five years ago per her recollection. She was in her normal state of health. She states her stools seem to be a little thinner over the last two to three days and today around one o'clock, she developed painless bright red blood per rectum and occasional dark blood. She had no fever or chills. No abdominal pain. No nausea or vomiting. No chest pain. No shortness of breath. No dysuria. No flank pain. She does take a baby aspirin on a regular basis and has doubled up on it recently because of some right arm pain. She takes no other blood thinners. She contacted Dr. Galeas's office and they recommended she come into the hospital. She was seen in the emergency room. She was found to have a UTI and was admitted for further care for: 1. Painless rectal bleeding with a history of diverticular Disease. 2. Leukocytosis 3. Urinary tract infection 4. Hyponatremia 5. Diabetes mellitus 6. Hyperlipidemia 7. COPD 8. History of IBS. During the course of the hospitalization, the following took place: GI consulted, put on PPI, IVF, serial HH GI recommended work up. S/P colonoscopy and EGD 09/24, gastric erosion, diverticulosis. No active bleeding capsule endoscopy as OP recommended as no actual source found HH dropped 7.6/22.3, S/P 2 units PRBC 09/24 HH up to 12.3/37.1 continued PPI instructed to avoid nuts, popcorn tolerated diet well, no n/v no more rectal bleeding, HH stable. Continue abx IV Rocephin-no need for PO abx at discharge UC mixed dillan, poss. contaminant Continued with Accu-Cheks before meals and at bedtime and insulin therapy Continued with home medications Labs reviewed stable Tolerating diet, no bleeding stable for discharge home Instructed to: F/U GI 2 weeks, need capsule endoscopy Diet-diverticulitis diet, verbalizes understanding Activity-as tolerated Instructed to continue PPI, avoid NSAIDs, ASA Pt Condition on Discharge: Stable Discharge Disposition: Discharge Home Discharge Instructions DIET: Follow Instructions for: Diabetic Diet, Diverticulitis Diet Activities you can perform: Weight Bearing as Amber Follow up Referrals: Gastroenterology - 2 Weeks with Raj Gipson MD New Medications: Pantoprazole (Protonix) 40 Mg Tab 40 MG PO DAILY Reflux #30 Ref 0 TAB Continued Medications: Amlodipine (Amlodipine) 5 Mg Tab 5 MG PO DAILY Blood Pressure Management #30 Ref 0 TAB Atorvastatin (Atorvastatin) 10 Mg Tab 10 MG PO HS Cholesterol Management #30 Ref 0 TAB Citalopram (Citalopram) 20 Mg Tab 20 MG PO DAILY Control Depression #30 Ref 0 TAB Enalapril (Enalapril) 2.5 Mg Tab 2.5 MG PO DAILY #30 Ref 0 TAB Ergocalciferol (Vitamin D) 50,000 Unit Cap 02038 UNITS PO Q7D Nutritional Supplement #30 Ref 0 CAP Glipizide (Glipizide) 5 Mg Tab 5 MG PO DAILY Take 30 minutes before a meal Blood Sugar Management #30 Ref 0 TAB Loperamide Liq (Imodium A-D Liq) 1 Mg/7.5 Ml Liq 2 MG PO DIRECTED 2 mg (15 mL) after each loose stool. Not to exceed 16 mg ( 120 mL) per day. PRN DIARRHEA #1 Ref 0 BOTTLE Loratadine (Loratadine) 10 Mg Tab 10 MG PO DAILY Allergy Management Ref 0 TAB Melatonin (Melatonin) 10 Mg Cap PO DAILY Rifaximin (Xifaxan) 200 Mg Tab 200 MG PO DAILY Diarrhea #9 Ref 0 TAB Sitagliptin (Januvia) 100 Mg Tab 100 MG PO DAILY Blood Sugar Management #30 Ref 0 TAB Pham RodriguezP Sep 25, 2016 11:27
[2016-09-25 12:00] VITALS: BP 150/71; PULSE 90; RESP 16; TEMP 98; O2SAT 97
[2016-09-25] MEDS ORDERED: POTASSIUM CHLORIDE 25 MEQ EFFERVESCENT TAB PO ONE (12:00)
== END 2016-09-25 14:15 | disposition home or self-care (01) | DRG 378 ==
LOC: NEPE 20:03 → NEDA 22:27 → N04B 09-23 15:14 → OBSVTOIN 09-24 09:42
PROVIDERS: ADMIT Specialist; ATTEND Specialist
PROC: 30233N1 Transfusion of Nonautologous Red Blood Cells into Peripheral Vein, Percutaneous Approach (ICD-10-PCS; 2016-09-24)
PROC: 0DJ08ZZ Inspection of Upper Intestinal Tract, Via Natural or Artificial Opening Endoscopic (ICD-10-PCS; principal; 2016-09-24 08:30)
PROC: 0DJD8ZZ Inspection of Lower Intestinal Tract, Via Natural or Artificial Opening Endoscopic (ICD-10-PCS; 2016-09-24 08:30)
DX: K57.91 Diverticulosis of intestine, part unspecified, without perforation or abscess with bleeding (principal); E87.1 Hypo-osmolality and hyponatremia; J44.9 Chronic obstructive pulmonary disease, unspecified; E11.9 Type 2 diabetes mellitus without complications; D62 Acute posthemorrhagic anemia; E78.5 Hyperlipidemia, unspecified; K58.9 Irritable bowel syndrome, unspecified; R82.99 Other abnormal findings in urine; M79.601 Pain in right arm; Z79.4 Long term (current) use of insulin; K25.9 Gastric ulcer, unspecified as acute or chronic, without hemorrhage or perforation
CPT/HCPCS: 36430; 80048; 80053; 81001; 82948; 85014; 85018; 85025; 85027; 85610; 85730; 86850; 86900; 86901; 86920; 87086; 96361; 96374; C9113; G0378; J0696; J1815; J1940; J7030; J7050; P9016

== ENCOUNTER → 2017-05-06 | Outpatient (CLI) | payer MEDICARE, BC ==
[~2017-05-06] MED LIST changes: -AMLO2.5T PO; +AMLO5TAB2 PO; -ASPI81 PO; -ATOR10 PO; +ATOR10TA15 PO; -B COTAB3 PO; -CELE20TA PO; +CITA20TA4 PO; -DICL75 PO; -ENAL2.5 PO; +ENAL2.5T PO; +ERGO1CAP10 PO; -GLIP5 PO; +GLIP5TAB8 PO; -LOPE2 PO; +LORA10TA PO; +MELA10CA PO; +PROT40TA PO; -SITA100 PO; +SITA1TAB2 PO; -WAL-10TA2 PO; +XIFA200T4 PO; +[UNRECOGNIZED DRUG - CODE] PO; -[UNRECOGNIZED DRUG - CODE] PO
--- NOTE | 2017-05-11 09:02 | RSPPFT ---
DATE OF PROCEDURE: 05/06/17 COMMENTS: Spirometry demonstrates an FEV1 of 1.6 at 80% of predicted, FVC of 2.2 at 79%, FEF 25-75 is 73% of predicted. Post-bronchodilator study demonstrated no significant change. There is a mild improvement in the FVC. Lung volumes demonstrated a raised RV/TLC ratio indicating hyperinflation and air trapping. Airways resistance is increased. Diffusion capacity is normal. Flow volume loops appear unremarkable. IMPRESSION: 1. Essentially normal pulmonary function study. 2. Mild response to use of bronchodilator indicating reactive airways. 3. Normal diffusion capacity.
== END ==
LOC: PHRSP 08:36
DX: R05 Cough (principal); J45.909 Unspecified asthma, uncomplicated; J44.9 Chronic obstructive pulmonary disease, unspecified; E11.9 Type 2 diabetes mellitus without complications
CPT/HCPCS: 94060; 94726; 94729

== ENCOUNTER 2018-04-09 20:18 | Observation (INO) ==
[2018-04-09] MEDS ORDERED: Sod Chloride 0.9% Inj 1,000 ML IV.SIG ONE (20:33)
--- NOTE | 2018-04-09 20:47 | ED ---
HPI General Chief complaint: GI Bleed Stated complaint: Poss GI bleed x 5pm Time Seen by Provider: 04/09/18 20:32 Source: patient and old records reviewed Mode of arrival: ambulatory Limitations: no limitations History of Present Illness MD complaint: Reports gross hematochezia Onset (ago): hour(s) (4) Pain Consistency: other (no pain ) Relieving factors: none Exacerbating factors: none Context: Reports history of GI bleed (diverticulosis) Associated symptoms: Reports denies other symptoms; Denies abdominal pain, nausea, vomiting, fever, chills, loss of appetite, other bleeding, syncope and weakness Treatments Prior to Arrival: Reports none Related Data Home Medications Medication Instructions Recorded Confirmed amlodipine 5 mg PO DAILY 04/09/18 04/09/18 aspirin [Aspir-81] 81 mg PO DAILY 04/09/18 04/09/18 atorvastatin 10 mg PO DAILY 04/09/18 04/09/18 azithromycin 250 mg PO DAILY 04/09/18 04/09/18 celecoxib 200 mg PO DAILY 04/09/18 04/09/18 citalopram 20 mg PO DAILY 04/09/18 04/09/18 clonazepam 0.5 mg PO HS 04/09/18 04/09/18 dapagliflozin [Farxiga] 10 mg PO DAILY 04/09/18 04/09/18 dulaglutide [Trulicity] 1.5 mg SUBCUT QWEEK 04/09/18 04/09/18 enalapril maleate 2.5 mg PO DAILY 04/09/18 04/09/18 ergocalciferol (vitamin D2) 50,000 unit PO QWEEK 04/09/18 04/09/18 [Vitamin D2] glipizide 5 mg PO BID 04/09/18 04/09/18 loratadine 10 mg PO DAILY 04/09/18 04/09/18 prednisone 10 mg PO DAILY 04/09/18 04/09/18 rifaximin [Xifaxan] 200 mg PO DAILY 04/09/18 04/09/18 umeclidinium-vilanterol [Anoro 1 inh INHALATION Q24H 04/09/18 04/09/18 Ellipta] Allergies Allergy/AdvReac Type Severity Reaction Status Date / Time metronidazole AdvReac Intermediate NAUSEA Verified 04/09/18 20:21 Review of Systems ROS: all other systems reviewed are negative [facility] Medical History Medical History COPD (chronic obstructive pulmonary disease) (Acute) Diabetes (Acute) Diverticulosis (Acute) History of GI bleed (Acute) History of IBS (Acute) History of abdominal hernia (Acute) History of anxiety (Acute) History of diverticulitis (Acute) History of high blood pressure (Acute) History of high cholesterol (Acute) Hx of emphysema (Acute) Surgical History Surgical History Hx of appendectomy (Acute) Hx of removal of ovary (Acute) Social History Social History Substance History: No History of Abuse Smoking Status: Former smoker Tobacco Type: Cigarettes How Often Do You Have a Drink Containing Alcohol: Never Recent Travel in [facility] within the Last 8 Weeks: No Recent Out of Country Travel within the Last 8 Weeks: No Exam Const General: cooperative, healthy appearing, comfortable, no acute distress, well developed and well groomed Orientation: alert, awake and oriented x3 HENMT Head: normal to inspection, normocephalic and atraumatic Mouth: moist mucous membranes Eyes Conjunctivae: conjunctivae normal Sclera: sclerae normal EOM: EOM intact bilaterally Neck Neck: normal visual inspection and full ROM Chest Chest: normal inspection of the chest Resp Effort & Inspection: normal respiratory effort and able to speak in complete sentences Auscultation: clear to auscultation bilaterally Cardio Rate: regular rate Rhythm: regular rhythm GI Inspection: normal to inspection Palpation: soft and nontender Back/Spine/Pelvis Cervical Spine: cervical ROM normal Thoracic/Lumbar Spine: thoraco-lumbar ROM normal Skin General: no rashes or lesions noted and turgor normal Neuro General: alert, awake, oriented x3, moves all extremities and CN's II-XI intact bilaterally Extrem General: normal to inspection and full ROM Psych Appearance: grossly normal Mental Status: mental status grossly normal Speech and Movement: speech and movement normal Mood: congruent mood Affect: normal affect Attitude: cooperative Thought Process: normal Thought Content: normal Judgment: judgment good Course Consultations Consultation #1: Dr. Enriquez will place in OBS Time: 21:32 Initial Documented Vital Signs Temperature 97.7 F 04/09/18 20:21 Pulse Rate 110 H 04/09/18 20:21 Respiratory Rate 16 04/09/18 20:21 Blood Pressure 125/59 L 04/09/18 20:21 Pulse Oximetry 93 L 04/09/18 20:21 Last Documented Vital Signs Temperature 97.7 F 04/09/18 20:21 Pulse Rate 86 04/09/18 21:20 Respiratory Rate 17 04/09/18 21:20 Blood Pressure 123/55 L 04/09/18 21:20 Pulse Oximetry 94 L 04/09/18 21:20 Medical Decision Making MDM Narrative Medical decision making narrative: This patient presents with 12-15 episodes of bright red blood per rectum since 5 PM. She has a history of diverticulosis. She is not currently feeling weak or dizzy. An IV will be started. Routine blood work including coags and type and cross X 2 units have been sent. Medical Screen Exam Complete: Yes Emergency Medical Condition: Yes Differential Diagnosis Differential Diagnosis: Differential diagnosis includes but is not limited to hemorrhoid, diverticulitis/osis, cancer, coagulopathy Medical Records Medical records reviewed: Yes I reviewed the patient's medical records. Patient was here in August 2016 with similar complaints. She received 2 units of blood. Subsequent colonoscopy showed diverticulosis. Lab Data Lab results reviewed: Yes I reviewed the patient's lab results. Result diagrams: 04/09/18 20:40 04/09/18 20:40 Lab Results 04/09/18 04/09/18 04/09/18 Range/Units 20:40 20:40 20:40 CBC w Diff Auto diff final WBC 12.9 H (4.0-11.0) th/mm3 RBC 4.93 (4.00-5.30) mil/mm3 Hgb 14.2 (11.6-15.3) gm/dL Hct 41.7 (35.0-46.0) % MCV 84.7 (80.0-100.0) fL MCH 28.7 (27.0-34.0) pg MCHC 34.0 (32.0-36.0) % RDW 13.0 (11.6-17.2) % Plt Count 285 (150-450) th/mm3 MPV 8.3 (7.0-11.0) fL Neut % (Auto) 82.3 H (16.0-70.0) % Lymph % (Auto) 12.5 (9.0-44.0) % [place] % (Auto) 4.4 (0.0-8.0) % Eos % (Auto) 0.2 (0.0-4.0) % Baso % (Auto) 0.6 (0.0-2.0) % Neut # (Auto) 10.6 H (1.8-7.7) th/mm3 Lymph # (Auto) 1.6 (1.0-4.8) th/mm3 [place] # (Auto) 0.6 (0.0-0.9) th/mm3 Eos # (Auto) 0.0 (0.0-0.4) th/mm3 Baso # (Auto) 0.1 (0.0-0.2) th/mm3 WBC Differential . Differential Comment . PT 11.0 (9.8-11.6) sec INR 1.1 Ratio APTT 24.3 (23.4-31.7) sec Sodium 138 (136-145) meq/L Potassium 4.2 (3.5-5.1) meq/L Chloride 106 (98-107) meq/L Carbon Dioxide 21.0 (21.0-32.0) meq/L Anion Gap 11 (5-15) meq/L BUN 16 (7-18) mg/dL Creatinine 0.89 (0.50-1.00) mg/dL Estimated GFR 62 L (>89) mL/min Random Glucose 281 H (74-106) mg/dL Calcium 8.8 (8.5-10.1) mg/dL Total Bilirubin 0.3 (0.2-1.0) mg/dL AST 14 L (15-37) U/L ALT 33 (10-53) U/L Alkaline Phosphatase 114 (45-117) U/L Total Protein 7.7 (6.4-8.2) g/dL Albumin 3.6 (3.4-5.0) g/dL MTS Gel Crossmatch 04/09/18 Range/Units 20:40 CBC w Diff WBC (4.0-11.0) th/mm3 RBC (4.00-5.30) mil/mm3 Hgb (11.6-15.3) gm/dL Hct (35.0-46.0) % MCV (80.0-100.0) fL MCH (27.0-34.0) pg MCHC (32.0-36.0) % RDW (11.6-17.2) % Plt Count (150-450) th/mm3 MPV (7.0-11.0) fL Neut % (Auto) (16.0-70.0) % Lymph % (Auto) (9.0-44.0) % [place] % (Auto) (0.0-8.0) % Eos % (Auto) (0.0-4.0) % Baso % (Auto) (0.0-2.0) % Neut # (Auto) (1.8-7.7) th/mm3 Lymph # (Auto) (1.0-4.8) th/mm3 [place] # (Auto) (0.0-0.9) th/mm3 Eos # (Auto) (0.0-0.4) th/mm3 Baso # (Auto) (0.0-0.2) th/mm3 WBC Differential Differential Comment PT (9.8-11.6) sec INR Ratio APTT (23.4-31.7) sec Sodium (136-145) meq/L Potassium (3.5-5.1) meq/L Chloride (98-107) meq/L Carbon Dioxide (21.0-32.0) meq/L Anion Gap (5-15) meq/L BUN (7-18) mg/dL Creatinine (0.50-1.00) mg/dL Estimated GFR (>89) mL/min Random Glucose (74-106) mg/dL Calcium (8.5-10.1) mg/dL Total Bilirubin (0.2-1.0) mg/dL AST (15-37) U/L ALT (10-53) U/L Alkaline Phosphatase (45-117) U/L Total Protein (6.4-8.2) g/dL Albumin (3.4-5.0) g/dL MTS Gel Crossmatch See Detail Discharge Plan Discharge Disposition Patient Disposition: 30 Still Patient Discharge Details Diagnosis: Lower gastrointestinal hemorrhage Physicians Team ED Provider: Melissa Caicedo Rxs /Orders / Referrals /Forms Prescriptions: No Action celecoxib 200 mg Capsule 200 mg PO DAILY RF: 0 prednisone 10 mg Tablet 10 mg PO DAILY RF: 0 atorvastatin 10 mg Tablet 10 mg PO DAILY RF: 0 azithromycin 250 mg Tablet 250 mg PO DAILY RF: 0 clonazepam 0.5 mg Tablet 0.5 mg PO HS RF: 0 enalapril maleate 2.5 mg Tablet 2.5 mg PO DAILY RF: 0 amlodipine 5 mg Tablet 5 mg PO DAILY RF: 0 aspirin [Aspir-81] 81 mg Tablet,Delayed Release (Dr/Ec) 81 mg PO DAILY RF: 0 citalopram 20 mg Tablet 20 mg PO DAILY RF: 0 ergocalciferol (vitamin D2) [Vitamin D2] 50,000 unit Capsule 50,000 unit PO QWEEK RF: 0 loratadine 10 mg Tablet 10 mg PO DAILY RF: 0 glipizide 5 mg Tablet 5 mg PO BID RF: 0 rifaximin [Xifaxan] 200 mg Tablet 200 mg PO DAILY RF: 0 umeclidinium-vilanterol [Anoro Ellipta] 62.5-25 mcg/actuation Blister With Device 1 inh INHALATION Q24H RF: 0 dapagliflozin [Farxiga] 10 mg Tablet 10 mg PO DAILY RF: 0 dulaglutide [Trulicity] 0.75 mg/0.5 mL Pen Injector 1.5 mg SUBCUT QWEEK RF: 0 Status ED Status: With Doctor
[2018-04-09 20:58] LABS: Baso # (Auto) 0.1 th/mm3 (0.0-0.2); Baso % (Auto) 0.6 % (0.0-2.0); Eos % (Auto) 0.2 % (0.0-4.0); Hematocrit 41.7 % (35.0-46.0); Hemoglobin 14.2 gm/dL (11.6-15.3); Lymph # (Auto) 1.6 th/mm3 (1.0-4.8); Lymph % (Auto) 12.5 % (9.0-44.0); Mean Corpuscular Hemoglobin 28.7 pg (27.0-34.0); Mean Corpuscular Volume 84.7 fL (80.0-100.0); Mean Platelet Volume 8.3 fL (7.0-11.0); Mono # (Auto) 0.6 th/mm3 (0.0-0.9); Mono % (Auto) 4.4 % (0.0-8.0); Neut # (Auto) 10.6 th/mm3 (1.8-7.7); Neut % (Auto) 82.3 % (16.0-70.0); Platelet Count 285 th/mm3 (150-450); Red Blood Count 4.93 mil/mm3 (4.00-5.30); White Blood Count 12.9 th/mm3 (4.0-11.0)
[2018-04-09 21:06] LABS: Chloride 106 meq/L (98-107); Potassium 4.2 meq/L (3.5-5.1); Sodium 138 meq/L (136-145)
[2018-04-09 21:09] LABS: Albumin 3.6 g/dL (3.4-5.0); Anion Gap 11 meq/L (5-15); Calcium 8.8 mg/dL (8.5-10.1)
[2018-04-09 21:10] LABS: Blood Urea Nitrogen 16 mg/dL (7-18); Glucose,Random 281 mg/dL (74-106)
[2018-04-09 21:11] LABS: Activated Partial Thrombo Time 24.3 sec (23.4-31.7); INR 1.1 Ratio
[2018-04-09 21:12] LABS: Alanine Aminotransferase 33 U/L (10-53); Aspartate Aminotransferase 14 U/L (15-37)
[2018-04-09 21:13] LABS: Glomerular Filtration Rate 62 mL/min (>89)
[2018-04-09 21:14] LABS: Total Protein 7.7 g/dL (6.4-8.2)
[2018-04-09 21:15] LABS: Alkaline Phosphatase 114 U/L (45-117)
[2018-04-09] MEDS ORDERED: Dextrose 50% in Water 50 ML Vial IV.PUSH PRN (21:31)
[2018-04-09] MEDS ORDERED: Acetaminophen 325 MG Tablet PO PRN (21:31)
[2018-04-09] MEDS ORDERED: Bisacodyl 10 MG Supp RECTAL PRN (21:31)
[2018-04-09] MEDS: clonazePAM 0.5 MG Tablet PO SCH (22:07)
[2018-04-09] MEDS: Sod Chloride 0.9% Inj 1,000 ML IV.CONT SCH (22:08)
[2018-04-10 06:46] LABS: Chloride 110 meq/L (98-107); Sodium 142 meq/L (136-145)
[2018-04-10 07:00] LABS: Alanine Aminotransferase 22 U/L (10-53); Albumin 2.7 g/dL (3.4-5.0); Alkaline Phosphatase 68 U/L (45-117); Anion Gap 8 meq/L (5-15); Aspartate Aminotransferase 10 U/L (15-37); Blood Urea Nitrogen 18 mg/dL (7-18); Calcium 7.8 mg/dL (8.5-10.1); Carbon Dioxide 24.3 meq/L (21.0-32.0); Glomerular Filtration Rate 89 mL/min (>89); Glucose,Random 146 mg/dL (74-106); Total Protein 5.8 g/dL (6.4-8.2)
[2018-04-10 07:07] LABS: Baso # (Auto) 0.1 th/mm3 (0.0-0.2); Baso % (Auto) 0.6 % (0.0-2.0); Eos # (Auto) 0.2 th/mm3 (0.0-0.4); Eos % (Auto) 1.2 % (0.0-4.0); Lymph # (Auto) 4.3 th/mm3 (1.0-4.8); Lymph % (Auto) 33.8 % (9.0-44.0); Mean Corpuscular HGB Conc 35.6 % (32.0-36.0); Mean Corpuscular Hemoglobin 29.4 pg (27.0-34.0); Mean Corpuscular Volume 82.6 fL (80.0-100.0); Mean Platelet Volume 8.7 fL (7.0-11.0); Mono # (Auto) 0.9 th/mm3 (0.0-0.9); Neut # (Auto) 7.3 th/mm3 (1.8-7.7); Neut % (Auto) 57.4 % (16.0-70.0); Platelet Count 252 th/mm3 (150-450); Red Blood Count 3.75 mil/mm3 (4.00-5.30); Red Cell Distribution Width 13.4 % (11.6-17.2); White Blood Count 12.8 th/mm3 (4.0-11.0)
[2018-04-10] MEDS: Sod Chloride 0.9% Inj 1,000 ML IV.CONT SCH ×2 (08:20→18:22)
[2018-04-10] MEDS: Insulin NovoLOG Aspart Correctional Sugar Inj SQ SCH ×4 (08:20→21:50)
[2018-04-10] MEDS: Senna/Docusate Sodium 8.6/50 MG Tablet PO SCH ×2 (08:22→21:51)
[2018-04-10] MEDS: Citalopram 20 MG Tablet PO SCH (08:22)
--- NOTE | 2018-04-10 10:34 | P.CONGI ---
History of Present Illness Consult reason: GI bleeding Chief complaint: GI bleed History of Present Illness: Patient is a 76-year-old female who developed acute onset GI bleeding the form of hematochezia yesterday afternoon. She had similar episode this morning. She describes this as moderate to large amounts of dark red blood per rectum. She denies any hematemesis or melena. She reports no symptoms of dizziness syncope palpitations chest pain. On direct questioning she denies history of heartburn dysphagia nausea vomiting constipation diarrhea abdominal pain jaundice ascites edema anorexia. There is history of weight loss which has been intentional Review of Systems Gastrointestinal: Reports bright, red blood in stools PMFSH - History History Provided By: Patient - Medical History Medical History: Medical History (Last Updated 04/09/18 @ 21:03 by Jessica Skinner RN) History of GI bleed History of IBS History of abdominal hernia History of anxiety History of diverticulitis History of high blood pressure History of high cholesterol Hx of emphysema COPD (chronic obstructive pulmonary disease) Diabetes Diverticulosis - Surgical History Surgical History: Surgical History (Last Updated 04/09/18 @ 21:03 by Jessica Skinner RN) Hx of appendectomy Hx of removal of ovary - Tobacco History Second Hand Smoke Exposure: No Tobacco Use In Past 30 Days: No Smoking Status: Former smoker Tobacco Type: Cigarettes - Alcohol History How Often Do You Have a Drink Containing Alcohol: Monthly or less - Substance Use History Substance History: No History of Abuse - Travel History Recent Travel in the [place] Within the Last 8 Weeks: No Recent Travel Out of the Country Within the Last 8 Weeks: No - Immunization History Tetanus Immunization: Unsure Medications and Allergies Active Medications: Active Medications Acetaminophen (Tylenol) 650 mg PO Q4H PRN PRN Reason: Temp > 100.4 Al Hydroxide/Mg Hydroxide (Milk Of Magnesia Liq) 30 ml PO Q12H PRN PRN Reason: Mild Constipation Atorvastatin Calcium (Lipitor) 10 mg PO DAILY [facility] Last Admin: 04/10/18 08:19 Dose: 10 mg Bisacodyl (Dulcolax Supp) 10 mg RECTAL DAILY PRN PRN Reason: SEVERE CONSITIPATION Bisacodyl (Dulcolax Ec) 10 mg PO NOW ONE Stop: 04/10/18 11:01 Bisacodyl (Dulcolax Ec) 10 mg PO ONCE ONE Stop: 04/11/18 00:01 Citalopram Hydrobromide (Celexa) 20 mg PO DAILY [facility] Last Admin: 04/10/18 08:22 Dose: Not Given Clonazepam (Klonopin) 0.5 mg PO HS [facility] Last Admin: 04/09/18 22:07 Dose: Not Given Dextrose (D50w Vial) 50 ml IV.PUSH UNSCH PRN PRN Reason: PER HYPOGLYCEMIA PROTOCOL Glucagon (Glucagon Inj) 1 mg OTHER PRN PRN PRN Reason: for Hypoglycemia Protocol Sodium Chloride (Ns Inj) 1,000 mls @ 100 mls/hr IV.CONT .Q10H [facility] Last Admin: 04/10/18 08:20 Dose: 100 mls/hr Insulin Aspart (Novolog Insulin Correctional Sugar Inj) 0 unit SQ ACHS [facility]; Protocol Last Admin: 04/10/18 08:20 Dose: 1 unit Lactulose (Lactulose Liq) 30 ml PO DAILY PRN PRN Reason: SEVERE CONSITIPATION Magnesium Citrate (Citroma Liq) 300 ml PO Q4H [facility] Stop: 04/10/18 23:01 Ondansetron HCl (Zofran Inj) 4 mg IV.PUSH Q6H PRN PRN Reason: NAUSEA OR VOMITING Senna/Docusate Sodium (Ruby-Colace) 1 tab PO BID [facility] Last Admin: 04/10/18 08:22 Dose: Not Given Sennosides (Senokot) 17.2 mg PO Q12H PRN PRN Reason: Moderate Constipation Sodium Chloride (Ns Flush) 2 ml IV.FLUSH PRN PRN PRN Reason: FLUSH AFTER USING IV ACCESS Allergies Allergy/AdvReac Type Severity Reaction Status Date / Time metronidazole AdvReac Intermediate NAUSEA Verified 04/09/18 20:21 Home Medications Medication Instructions Recorded Confirmed Type amlodipine 5 mg PO DAILY 04/09/18 04/09/18 History aspirin [Aspir-81] 81 mg PO DAILY 04/09/18 04/09/18 History atorvastatin 10 mg PO DAILY 04/09/18 04/09/18 History azithromycin 250 mg PO DAILY 04/09/18 04/09/18 History celecoxib 200 mg PO DAILY 04/09/18 04/09/18 History citalopram 20 mg PO DAILY 04/09/18 04/09/18 History clonazepam 0.5 mg PO HS 04/09/18 04/09/18 History dapagliflozin [Farxiga] 10 mg PO DAILY 04/09/18 04/09/18 History dulaglutide [Trulicity] 1.5 mg SUBCUT QWEEK 04/09/18 04/09/18 History enalapril maleate 2.5 mg PO DAILY 04/09/18 04/09/18 History ergocalciferol (vitamin D2) 50,000 unit PO QWEEK 04/09/18 04/09/18 History [Vitamin D2] glipizide 5 mg PO BID 04/09/18 04/09/18 History loratadine 10 mg PO DAILY 04/09/18 04/09/18 History prednisone 10 mg PO DAILY 04/09/18 04/09/18 History rifaximin [Xifaxan] 200 mg PO DAILY 04/09/18 04/09/18 History umeclidinium-vilanterol [Anoro 1 inh INHALATION Q24H 04/09/18 04/09/18 History Ellipta] Exam Vital signs: Vital Signs 04/09/18 20:21 04/09/18 20:33 04/09/18 21:20 Temperature 97.7 F Pulse Rate 110 H 86 Respiratory Rate 16 17 Blood Pressure 125/59 L 123/55 L Pulse Oximetry 93 L 94 L 94 L 04/09/18 22:30 04/10/18 04:00 04/10/18 06:32 Temperature 96.4 F L 97.8 F Pulse Rate 84 73 Respiratory Rate 20 20 Blood Pressure 127/79 93/55 L 119/55 L Pulse Oximetry 93 L 93 L 04/10/18 08:00 Temperature 97.2 F L Pulse Rate 77 Respiratory Rate 20 Blood Pressure 138/63 Pulse Oximetry 96 Intake & Output 04/09/18 04/10/18 04/10/18 18:59 06:59 18:59 Intake Total 1000 / 1000 1240 / 1240 Output Total 200 / 200 Balance 1000 / 1000 1040 / 1040 Weight 189 kg Intake: IV 1000 / 1000 1000 / 1000 NS Inj 1,000 ML @ 100 mls/hr IV 1000 / 1000 .CONT .Q10H [facility] Rx#:[id number] NS Inj 1,000 ML @ Wide Open IV. 1000 / 1000 SIG BOLUS ONE Rx#:[id number] Oral 240 / 240 Output: Urine 200 / 200 Other: Date of Last Bowel Movement 04/10/18 04/10/18 # Bowel Movements 3 Weight On Admission 189 kg - Routine Respiratory Exam Present: CTA bilaterally - Routine Cardiovascular Exam Present: murmur - Routine Abdominal Exam Comments: Abdomen soft. No tenderness guarding rigidity. Liver spleen not palpable. No other masses palpable no ascites bowel sounds are normal. Results - Labs CBC & Chem 7: 04/10/18 06:27 04/10/18 06:27 Labs: Laboratory Results - last 24 hr 04/09/18 04/09/18 04/09/18 20:40 20:40 20:40 CBC w Diff Auto diff final WBC 12.9 H RBC 4.93 Hgb 14.2 Hct 41.7 MCV 84.7 MCH 28.7 MCHC 34.0 RDW 13.0 Plt Count 285 MPV 8.3 Neut % (Auto) 82.3 H Lymph % (Auto) 12.5 [place] % (Auto) 4.4 Eos % (Auto) 0.2 Baso % (Auto) 0.6 Neut # (Auto) 10.6 H Lymph # (Auto) 1.6 [place] # (Auto) 0.6 Eos # (Auto) 0.0 Baso # (Auto) 0.1 WBC Differential . Differential Comment . PT 11.0 INR 1.1 APTT 24.3 Sodium 138 Potassium 4.2 Chloride 106 Carbon Dioxide 21.0 Anion Gap 11 BUN 16 Creatinine 0.89 Estimated GFR 62 L POC Glucose Random Glucose 281 H Calcium 8.8 Total Bilirubin 0.3 AST 14 L ALT 33 Alkaline Phosphatase 114 Total Protein 7.7 Albumin 3.6 Blood Type Blood Type Recheck Antibody Screen MTS Gel Crossmatch Bld Prod Order Comment 04/09/18 04/10/18 04/10/18 20:40 06:27 06:27 CBC w Diff Auto diff final WBC 12.8 H RBC 3.75 L Hgb 11.0 L D Hct 31.0 L MCV 82.6 MCH 29.4 MCHC 35.6 RDW 13.4 Plt Count 252 MPV 8.7 Neut % (Auto) 57.4 Lymph % (Auto) 33.8 [place] % (Auto) 7.0 Eos % (Auto) 1.2 Baso % (Auto) 0.6 Neut # (Auto) 7.3 Lymph # (Auto) 4.3 [place] # (Auto) 0.9 Eos # (Auto) 0.2 Baso # (Auto) 0.1 WBC Differential . Differential Comment . PT INR APTT Sodium 142 Potassium 4.0 Chloride 110 H Carbon Dioxide 24.3 Anion Gap 8 BUN 18 Creatinine 0.65 Estimated GFR 89 POC Glucose Random Glucose 146 H D Calcium 7.8 L D Total Bilirubin 0.4 AST 10 L ALT 22 Alkaline Phosphatase 68 Total Protein 5.8 L D Albumin 2.7 L D Blood Type B Positive Blood Type Recheck Not needed Antibody Screen Negative MTS Gel Crossmatch See Detail Bld Prod Order Comment 04/10/18 07:56 CBC w Diff WBC RBC Hgb Hct MCV MCH MCHC RDW Plt Count MPV Neut % (Auto) Lymph % (Auto) [place] % (Auto) Eos % (Auto) Baso % (Auto) Neut # (Auto) Lymph # (Auto) [place] # (Auto) Eos # (Auto) Baso # (Auto) WBC Differential Differential Comment PT INR APTT Sodium Potassium Chloride Carbon Dioxide Anion Gap BUN Creatinine Estimated GFR POC Glucose 172 H Random Glucose Calcium Total Bilirubin AST ALT Alkaline Phosphatase Total Protein Albumin Blood Type Blood Type Recheck Antibody Screen MTS Gel Crossmatch Bld Prod Order Comment Assessment and Plan (1) Anemia Status: Acute Code(s): D64.9 - Anemia, unspecified - Plan 1. GI bleeding likely lower GI bleeding from colonic diverticulosis. Other possibilities include vascular malformation, ischemic colitis and colon neoplasia. 2. Monitor serial CBC 3. Continue supportive treatment 4.Schedule EGD and colonoscopy in the a.m.
[2018-04-10] MEDS: Magnesium Citrate Liq 300 ML Bottle PO SCH ×4 (10:43→22:13)
--- NOTE | 2018-04-10 12:47 | P.HP ---
History of Present Illness Primary Care Physician: Sarath Lentz MD Chief Complaint: Bright red blood per rectum History of Present Illness: 77-year-old female with known history of diabetes, hypertension, hyperlipidemia, chronic obstructive pulmonary disease, irritable bowel syndrome , diverticulosis, anxiety who presented to the hospital for evaluation of blood in her stool. Patient states that over the last 2 weeks she has noticed bright red blood on the toilet paper whenever she wipes. She contributed to her hemorrhoids. However yesterday afternoon at approximately 5 PM she had a bowel movement and noticed that the whole toilet was a dark maroon coloration with the bright red blood on toilet paper. He was concerned about GI bleeding, because she had been admitted little over a year ago for the same symptoms. The patient came to the emergency department for evaluation. Because the patient having 12-15 episodes of bright red blood per rectum is recommended by the ER physician and the patient be admitted for further evaluation and management. Patient does usually go to Dr. Gipson on a regular basis, she has been there recently and saw the mid-level practitioner at that time. There is no outpatient procedure scheduled at this time. Patient is asymptomatic without any lightheadedness, dizziness, shortness of breath, dyspnea. - Diagnosis (1) GI bleed Review of Systems All other systems reviewed negative except as stated in HPI Gastrointestinal: Reports bright, red blood in stools PMFSH - History History Provided By: Patient - Medical History Medical History: Medical History (Last Reviewed 04/10/18 @ 12:39 by DARYL Dia) History of GI bleed History of IBS History of abdominal hernia History of anxiety History of diverticulitis History of high blood pressure History of high cholesterol Hx of emphysema COPD (chronic obstructive pulmonary disease) Diabetes Diverticulosis - Surgical History Surgical History: Surgical History (Last Reviewed 04/10/18 @ 12:39 by DARYL Dia) Hx of appendectomy Hx of removal of ovary - Family History Family History: Family History (Last Updated 04/10/18 @ 12:39 by DARYL Dia) Father Family history of heart disease Mother Family history of heart disease - Tobacco History Second Hand Smoke Exposure: No Tobacco Use In Past 30 Days: No Smoking Status: Former smoker Tobacco Type: Cigarettes - Alcohol History How Often Do You Have a Drink Containing Alcohol: Monthly or less - Substance Use History Substance History: No History of Abuse - Travel History Recent Travel in the [place] Within the Last 8 Weeks: No Recent Travel Out of the Country Within the Last 8 Weeks: No - Immunization History Tetanus Immunization: Unsure Medications and Allergies Active Medications: Active Medications Acetaminophen (Tylenol) 650 mg PO Q4H PRN PRN Reason: Temp > 100.4 Al Hydroxide/Mg Hydroxide (Milk Of Magnesia Liq) 30 ml PO Q12H PRN PRN Reason: Mild Constipation Atorvastatin Calcium (Lipitor) 10 mg PO DAILY [facility] Last Admin: 04/10/18 08:19 Dose: 10 mg Bisacodyl (Dulcolax Supp) 10 mg RECTAL DAILY PRN PRN Reason: SEVERE CONSITIPATION Bisacodyl (Dulcolax Ec) 10 mg PO ONCE ONE Stop: 04/11/18 00:01 Citalopram Hydrobromide (Celexa) 20 mg PO DAILY [facility] Last Admin: 04/10/18 08:22 Dose: Not Given Clonazepam (Klonopin) 0.5 mg PO HS [facility] Last Admin: 04/09/18 22:07 Dose: Not Given Dextrose (D50w Vial) 50 ml IV.PUSH UNSCH PRN PRN Reason: PER HYPOGLYCEMIA PROTOCOL Glucagon (Glucagon Inj) 1 mg OTHER PRN PRN PRN Reason: for Hypoglycemia Protocol Sodium Chloride (Ns Inj) 1,000 mls @ 100 mls/hr IV.CONT .Q10H [facility] Last Admin: 04/10/18 08:20 Dose: 100 mls/hr Insulin Aspart (Novolog Insulin Correctional Sugar Inj) 0 unit SQ ACHS [facility]; Protocol Last Admin: 04/10/18 08:20 Dose: 1 unit Lactulose (Lactulose Liq) 30 ml PO DAILY PRN PRN Reason: SEVERE CONSITIPATION Magnesium Citrate (Citroma Liq) 300 ml PO Q4H [facility] Stop: 04/10/18 23:01 Last Admin: 04/10/18 10:43 Dose: 300 ml Ondansetron HCl (Zofran Inj) 4 mg IV.PUSH Q6H PRN PRN Reason: NAUSEA OR VOMITING Senna/Docusate Sodium (Ruby-Colace) 1 tab PO BID [facility] Last Admin: 04/10/18 08:22 Dose: Not Given Sennosides (Senokot) 17.2 mg PO Q12H PRN PRN Reason: Moderate Constipation Sodium Chloride (Ns Flush) 2 ml IV.FLUSH PRN PRN PRN Reason: FLUSH AFTER USING IV ACCESS Allergies Allergy/AdvReac Type Severity Reaction Status Date / Time metronidazole AdvReac Intermediate NAUSEA Verified 04/09/18 20:21 Home Medications Medication Instructions Recorded Confirmed Type amlodipine 5 mg PO DAILY 04/09/18 04/09/18 History aspirin [Aspir-81] 81 mg PO DAILY 04/09/18 04/09/18 History atorvastatin 10 mg PO DAILY 04/09/18 04/09/18 History azithromycin 250 mg PO DAILY 04/09/18 04/09/18 History celecoxib 200 mg PO DAILY 04/09/18 04/09/18 History citalopram 20 mg PO DAILY 04/09/18 04/09/18 History clonazepam 0.5 mg PO HS 04/09/18 04/09/18 History dapagliflozin [Farxiga] 10 mg PO DAILY 04/09/18 04/09/18 History dulaglutide [Trulicity] 1.5 mg SUBCUT QWEEK 04/09/18 04/09/18 History enalapril maleate 2.5 mg PO DAILY 04/09/18 04/09/18 History ergocalciferol (vitamin D2) 50,000 unit PO QWEEK 04/09/18 04/09/18 History [Vitamin D2] glipizide 5 mg PO BID 04/09/18 04/09/18 History loratadine 10 mg PO DAILY 04/09/18 04/09/18 History prednisone 10 mg PO DAILY 04/09/18 04/09/18 History rifaximin [Xifaxan] 200 mg PO DAILY 04/09/18 04/09/18 History umeclidinium-vilanterol [Anoro 1 inh INHALATION Q24H 04/09/18 04/09/18 History Ellipta] Exam Vital signs: Vital Signs 04/09/18 20:21 04/09/18 20:33 04/09/18 21:20 Temperature 97.7 F Pulse Rate 110 H 86 Respiratory Rate 16 17 Blood Pressure 125/59 L 123/55 L Pulse Oximetry 93 L 94 L 94 L 04/09/18 22:30 04/10/18 04:00 04/10/18 06:32 Temperature 96.4 F L 97.8 F Pulse Rate 84 73 Respiratory Rate 20 20 Blood Pressure 127/79 93/55 L 119/55 L Pulse Oximetry 93 L 93 L 04/10/18 08:00 Temperature 97.2 F L Pulse Rate 77 Respiratory Rate 20 Blood Pressure 138/63 Pulse Oximetry 96 Intake & Output 04/09/18 04/10/18 04/10/18 18:59 06:59 18:59 Intake Total 1000 / 1000 1240 / 1240 Output Total 200 / 200 Balance 1000 / 1000 1040 / 1040 Weight 189 kg Intake: IV 1000 / 1000 1000 / 1000 NS Inj 1,000 ML @ 100 mls/hr IV 1000 / 1000 .CONT .Q10H [facility] Rx#:[id number] NS Inj 1,000 ML @ Wide Open IV. 1000 / 1000 SIG BOLUS ONE Rx#:[id number] Oral 240 / 240 Output: Urine 200 / 200 Other: Date of Last Bowel Movement 04/10/18 04/10/18 # Bowel Movements 3 Weight On Admission 189 kg Narrative: GENERAL: Well-developed, well-nourished, in no acute distress. alert and orientated HEENT: Head is normocephalic without any lesions or masses noted. Facial features are symmetric. Eyes: Pupils equal round reactive to light. Extraocular muscles are intact. Conjunctivae were clear. Oropharyngeal: Pharynx without any erythema edema. Tongue is midline without deviation. Buccal mucosa is moist without any masses or lesions NECK: Supple without any masses. Trachea midline no deviation. No JVD, no bruits are appreciated CARDIAC: Regular rhythm, regular rate. S1/S2 are heard. No murmurs gallops or rubs. LUNGS: Clear to auscultation bilaterally. No wheeze, rhonchi or rales. No use of accessory muscles on inspiration or expiration. ABDOMEN: Soft, nontender. Nondistended. Bowel sounds heard in all 4 quadrants. No organomegaly or masses. Negative rebound, negative guarding EXTREMITIES: No edema, pulses are equal bilaterally. No cyanosis or clubbing NEUROLOGY: Mood and affect appear appropriate. Cranial nerves II through XII grossly intact. Muscle strength 5/5 in upper and lower extremities bilaterally. Deep tendon reflexes are 2+ in upper and lower extremities bilaterally. Results - Labs CBC & Chem 7: 04/10/18 06:27 04/10/18 06:27 Labs: Laboratory Results - last 24 hr 04/09/18 04/09/18 04/09/18 20:40 20:40 20:40 CBC w Diff Auto diff final WBC 12.9 H RBC 4.93 Hgb 14.2 Hct 41.7 MCV 84.7 MCH 28.7 MCHC 34.0 RDW 13.0 Plt Count 285 MPV 8.3 Neut % (Auto) 82.3 H Lymph % (Auto) 12.5 [place] % (Auto) 4.4 Eos % (Auto) 0.2 Baso % (Auto) 0.6 Neut # (Auto) 10.6 H Lymph # (Auto) 1.6 [place] # (Auto) 0.6 Eos # (Auto) 0.0 Baso # (Auto) 0.1 WBC Differential . Differential Comment . PT 11.0 INR 1.1 APTT 24.3 Sodium 138 Potassium 4.2 Chloride 106 Carbon Dioxide 21.0 Anion Gap 11 BUN 16 Creatinine 0.89 Estimated GFR 62 L POC Glucose Random Glucose 281 H Calcium 8.8 Total Bilirubin 0.3 AST 14 L ALT 33 Alkaline Phosphatase 114 Total Protein 7.7 Albumin 3.6 Blood Type Blood Type Recheck Antibody Screen MTS Gel Crossmatch Bld Prod Order Comment 04/09/18 04/10/18 04/10/18 20:40 06:27 06:27 CBC w Diff Auto diff final WBC 12.8 H RBC 3.75 L Hgb 11.0 L D Hct 31.0 L MCV 82.6 MCH 29.4 MCHC 35.6 RDW 13.4 Plt Count 252 MPV 8.7 Neut % (Auto) 57.4 Lymph % (Auto) 33.8 [place] % (Auto) 7.0 Eos % (Auto) 1.2 Baso % (Auto) 0.6 Neut # (Auto) 7.3 Lymph # (Auto) 4.3 [place] # (Auto) 0.9 Eos # (Auto) 0.2 Baso # (Auto) 0.1 WBC Differential . Differential Comment . PT INR APTT Sodium 142 Potassium 4.0 Chloride 110 H Carbon Dioxide 24.3 Anion Gap 8 BUN 18 Creatinine 0.65 Estimated GFR 89 POC Glucose Random Glucose 146 H D Calcium 7.8 L D Total Bilirubin 0.4 AST 10 L ALT 22 Alkaline Phosphatase 68 Total Protein 5.8 L D Albumin 2.7 L D Blood Type B Positive Blood Type Recheck Not needed Antibody Screen Negative MTS Gel Crossmatch See Detail Bld Prod Order Comment 04/10/18 04/10/18 07:56 10:44 CBC w Diff WBC RBC Hgb Hct MCV MCH MCHC RDW Plt Count MPV Neut % (Auto) Lymph % (Auto) [place] % (Auto) Eos % (Auto) Baso % (Auto) Neut # (Auto) Lymph # (Auto) [place] # (Auto) Eos # (Auto) Baso # (Auto) WBC Differential Differential Comment PT INR APTT Sodium Potassium Chloride Carbon Dioxide Anion Gap BUN Creatinine Estimated GFR POC Glucose 172 H 130 H Random Glucose Calcium Total Bilirubin AST ALT Alkaline Phosphatase Total Protein Albumin Blood Type Blood Type Recheck Antibody Screen MTS Gel Crossmatch Bld Prod Order Comment Caprini VTE Risk Assessment Caprini VTE Risk Assessment: Moderate/High Risk (score >= 2) VTE Pharmacological Exception Reason: Active bleeding Caprini Risk Assessment Model: Point Value = 1 Point Value = 2 Point Value = 3 Point Value = 5 Age 41-60 Minor surgery BMI > 25 kg/m2 Swollen legs Varicose veins or History of unexplained or recurrent spontaneous Oral contraceptives or hormone replacement Sepsis (< 1 month) Serious lung disease, including pneumonia (< 1 month) Abnormal pulmonary function Acute myocardial infarction Congestive heart failure (< 1 month) History of inflammatory bowel disease Medical patient at bed rest Age 61-74 Arthroscopic surgery Major open surgery (> 45 min) Laparoscopic surgery (> 45 min) Malignancy Confined to bed (> 72 hours) Immobilizing plaster cast Central venous access Age >= 75 History of VTE Family history of VTE Factor V Leiden Prothrombin [id number] Lupus anticoagulant Anticardiolipin antibodies Elevated serum homocysteine Heparin-induced thrombocytopenia Other congenital or acquired thrombophilia Stroke (< 1 month) Elective arthroplasty Hip, pelvis, or leg fracture Acute spinal cord injury (< 1 month) Prophylaxis Regimen: Total Risk Factor Score Risk Level Prophylaxis Regimen 0-1 Low Early ambulation 2 Moderate Order ONE of the following: *Sequential Compression Device (SCD) *Heparin 5000 units SQ BID 3-4 Higher Order ONE of the following medications: *Heparin 5000 units SQ TID *Enoxaparin/Lovenox 40 mg SQ daily (WT < 150 kg, CrCl > 30 mL/min) *Enoxaparin/Lovenox 30 mg SQ daily (WT < 150 kg, CrCl > 10-29 mL/min) *Enoxaparin/Lovenox 30 mg SQ BID (WT < 150 kg, CrCl > 30 mL/min) AND/OR *Sequential Compression Device (SCD) 5 or more Highest Order ONE of the following medications: *Heparin 5000 units SQ TID (Preferred with Epidurals) *Enoxaparin/Lovenox 40 mg SQ daily (WT < 150 kg, CrCl > 30 mL/min) *Enoxaparin/Lovenox 30 mg SQ daily (WT < 150 kg, CrCl > 10-29 mL/min) *Enoxaparin/Lovenox 30 mg SQ BID (WT < 150 kg, CrCl > 30 mL/min) AND *Sequential Compression Device (SCD) Assessment and Plan - Assessment (1) GI bleed Code(s): K92.2 - Gastrointestinal hemorrhage, unspecified Status: Acute - Plan GI bleed -Patient presented with 12-15 episodes of stool with bright red blood on toilet paper and maroon colored stool in the toilet -Continue to trend hemoglobin hematocrit, transfuse if hemoglobin below 8.0 -GI consulted for further recommendations -Clear liquid diet, n.p.o. after midnight -Patient is undergoing GI prep at this time for panendoscopy Hypertension, hyperlipidemia -Home medication continued Diabetes -Accu-Cheks with sliding scale insulin DVT prevention -Sequential compression devices
[2018-04-10 13:14] LABS: Hematocrit 31.3 % (35.0-46.0); Hemoglobin 10.4 gm/dL (11.6-15.3)
[2018-04-10] MEDS: clonazePAM 0.5 MG Tablet PO SCH (23:25)
[2018-04-11] MEDS: Sod Chloride 0.9% Inj 1,000 ML IV.CONT SCH ×2 (02:55→12:55)
[2018-04-11 05:43] LABS: Baso # (Auto) 0.1 th/mm3 (0.0-0.2); Baso % (Auto) 0.6 % (0.0-2.0); Eos # (Auto) 0.3 th/mm3 (0.0-0.4); Eos % (Auto) 1.7 % (0.0-4.0); Hematocrit 28.4 % (35.0-46.0); Hemoglobin 9.4 gm/dL (11.6-15.3); Lymph # (Auto) 4.2 th/mm3 (1.0-4.8); Mean Corpuscular HGB Conc 32.9 % (32.0-36.0); Mean Corpuscular Volume 85.1 fL (80.0-100.0); Mean Platelet Volume 8.1 fL (7.0-11.0); Mono # (Auto) 1.1 th/mm3 (0.0-0.9); Mono % (Auto) 6.9 % (0.0-8.0); Neut # (Auto) 9.8 th/mm3 (1.8-7.7); Neut % (Auto) 63.8 % (16.0-70.0); Platelet Count 269 th/mm3 (150-450); Red Blood Count 3.34 mil/mm3 (4.00-5.30); Red Cell Distribution Width 13.4 % (11.6-17.2); White Blood Count 15.5 th/mm3 (4.0-11.0)
[2018-04-11 05:56] LABS: Potassium 3.9 meq/L (3.5-5.1)
[2018-04-11 06:02] LABS: Calcium 7.7 mg/dL (8.5-10.1); Carbon Dioxide 23.2 meq/L (21.0-32.0)
--- NOTE | 2018-04-11 08:22 | P.PNIM ---
Subjective Interval history: 77-year-old female who is seen and examined today for follow-up on GI bleed. Patient did undergo prep. States that she still having some color to her stool. Awaiting endoscopy to be performed at 4 PM this afternoon. Vital signs are stable. Patient remains afebrile. Physical Exam Vital signs: Vital Signs 04/10/18 12:00 04/10/18 16:00 04/10/18 20:00 Temperature 97.8 F 98.5 F 97.8 F Pulse Rate 104 H 99 H 91 H Respiratory Rate 19 20 18 Blood Pressure 154/67 H 126/65 109/57 L Pulse Oximetry 96 96 93 L 04/11/18 00:00 04/11/18 03:05 Temperature 98.0 F Pulse Rate 80 94 H Respiratory Rate 18 Blood Pressure 106/53 L 122/58 L Pulse Oximetry 92 L Intake & Output 04/10/18 04/11/18 04/11/18 18:59 06:59 18:59 Intake Total 2680 / 2680 1959 Output Total 600 / 600 Balance 2079 / 2079 Weight 86.4 kg Intake: IV 1999 / 1999 1000 / 1000 NS Inj 1,000 ML @ 100 mls/hr IV 1999 / 1999 1000 / 1000 .CONT .Q10H VANDANA Rx#:[id number] Oral 440 / 440 960 / 960 Oral Supplement 240 / 240 Output: Urine 600 / 600 Other: # Voids 3 Date of Last Bowel Movement 04/10/18 04/11/18 Narrative: GENERAL: Well-developed, well-nourished, in no acute distress. alert and orientated HEENT: Head is normocephalic without any lesions or masses noted. Facial features are symmetric. Eyes: Extraocular muscles are intact. Conjunctivae were clear. NECK: Supple without any masses. Trachea midline no deviation. No JVD, CARDIAC: Regular rhythm, regular rate. S1/S2 are heard. No murmurs gallops or rubs. LUNGS: Clear to auscultation bilaterally. No wheeze, rhonchi or rales. No use of accessory muscles on inspiration or expiration. ABDOMEN: Soft, nontender. Nondistended. Bowel sounds heard in all 4 quadrants. No organomegaly or masses. Negative rebound, negative guarding EXTREMITIES: No edema, pulses are equal bilaterally. No cyanosis or clubbing NEUROLOGY: Mood and affect appear appropriate. Cranial nerves II through XII grossly intact. moving all extremities, speech is clear Results - Labs CBC & Chem 7: 04/11/18 05:10 04/11/18 05:10 Laboratory Results - last 24 hr 04/10/18 04/10/18 04/10/18 10:44 13:05 16:25 CBC w Diff WBC RBC Hgb 10.4 L Hct 31.3 L MCV MCH MCHC RDW Plt Count MPV Neut % (Auto) Lymph % (Auto) [place]atte % (Auto) Eos % (Auto) Baso % (Auto) Neut # (Auto) Lymph # (Auto) [place]atte # (Auto) Eos # (Auto) Baso # (Auto) WBC Differential Differential Comment Sodium Potassium Chloride Carbon Dioxide Anion Gap BUN Creatinine Estimated GFR POC Glucose 130 H 160 H Random Glucose Calcium 04/10/18 04/11/18 04/11/18 21:49 05:10 05:10 CBC w Diff Auto diff final WBC 15.5 H RBC 3.34 L Hgb 9.4 L Hct 28.4 L MCV 85.1 MCH 28.0 MCHC 32.9 RDW 13.4 Plt Count 269 MPV 8.1 Neut % (Auto) 63.8 Lymph % (Auto) 27.0 Platte % (Auto) 6.9 Eos % (Auto) 1.7 Baso % (Auto) 0.6 Neut # (Auto) 9.8 H Lymph # (Auto) 4.2 Platte # (Auto) 1.1 H Eos # (Auto) 0.3 Baso # (Auto) 0.1 WBC Differential . Differential Comment . Sodium 142 Potassium 3.9 Chloride 110 H Carbon Dioxide 23.2 Anion Gap 9 BUN 12 Creatinine 0.68 Estimated GFR 84 L POC Glucose 150 H Random Glucose 139 H Calcium 7.7 L 04/11/18 07:41 CBC w Diff WBC RBC Hgb Hct MCV MCH MCHC RDW Plt Count MPV Neut % (Auto) Lymph % (Auto) Platte % (Auto) Eos % (Auto) Baso % (Auto) Neut # (Auto) Lymph # (Auto) Platte # (Auto) Eos # (Auto) Baso # (Auto) WBC Differential Differential Comment Sodium Potassium Chloride Carbon Dioxide Anion Gap BUN Creatinine Estimated GFR POC Glucose 144 H Random Glucose Calcium - Procedures EGD IMPRESSIONS: 1. Duodenum normal-biopsy gastritis antrum-biopsy esophagitis distal esophagus- biopsy 2. Retroflexed views revealed a hiatal hernia COLONOSCOPY IMPRESSIONS: 1. Diverticulosis sigmoid,descending 2. Retroflexed views revealed internal hemorrhoids 3. Retroflexed views revealed medium internal hemorrhoids 4. Revealed external hemorrhoids Assessment and Plan - Assessment (1) GI bleed Code(s): K92.2 - Gastrointestinal hemorrhage, unspecified Status: Acute - Plan GI bleed -Patient presented with 12-15 episodes of stool with bright red blood on toilet paper and maroon colored stool in the toilet -Continue to trend hemoglobin hematocrit, transfuse if hemoglobin below 8.0 -GI consulted for further recommendations, plans for endoscopy -Patient has undergone panendoscopy. No active bleeding was appreciated. Diverticular disease was noted. -GI indicates that the patient can be discharged home Hypertension, hyperlipidemia -Home medication continued Diabetes -Accu-Cheks with sliding scale insulin DVT prevention -Sequential compression devices Discharge Planning: Discharge home in stable condition Activity: Ad clare. Diet: Healthy heart diet Medication per medication reconciliation Follow-up with primary medical doctor in 1 week
[2018-04-11] MEDS: Insulin NovoLOG Aspart Correctional Sugar Inj SQ SCH ×3 (08:33→17:58)
[2018-04-11] MEDS: Citalopram 20 MG Tablet PO SCH (08:34)
[2018-04-11] MEDS: Senna/Docusate Sodium 8.6/50 MG Tablet PO SCH (08:34)
--- NOTE | 2018-04-11 14:20 | ECG ---
Date Performed: 04/10/2018 Time Performed: 16:28:11 PTAGE: 77 years EKG: Sinus rhythm RIGHT BUNDLE BRANCH BLOCK INFERIOR MYOCARDIAL INFARCTION Clinical correlation is recommended ABNORMA L ECG PREVIOUS TRACING : 10/16/2008 16.47 DOCTOR: Jaxon Ortiz Interpretating Date/Time 04/11/2018 14:18:29
[2018-04-11] MEDS ORDERED: Chlorhexidine Gluconate 2% 1 Pack (2 Cloths) TOPICAL ONE (16:25)
[2018-04-11] MEDS ORDERED: Metoprolol Tartrate 25 MG Tablet PO ONE (16:25)
--- NOTE | 2018-04-11 16:48 | GIPROC ---
[facility] [address] [place] [address], [id number] EGD PROCEDURE REPORT EXAM DATE: 04/11/2018 PATIENT NAME: Divina Lugo MR #: [id number] BIRTHDATE: 1940 ATTENDING: Jes Mayorga MD ORDER #: [id number] SWATCH FOLDER: Winston Barker LOOM CONTROL CHAIN BUILDER STATUS: inpatient INDICATIONS: The patient is a 77 yr old female here for an EGD due to gi bleeding abdominal pain PROCEDURE PERFORMED: EGD w/ biopsy MEDICATIONS: None and Per Anesthesia. TOPICAL ANESTHETIC: none CONSENT: The patient understands the risks and benefits of the procedure and understands that these risks include, but are not limited to: sedation, allergic reaction, infection, perforation and/or bleeding. Alternative means of evaluation and treatment include, among others: physical exam, x-rays, and/or surgical intervention. The patient elects to proceed with this endoscopic procedure. medical equipment was checked for proper function. Hand hygiene and appropriate measures for infection prevention was taken. After the risks, benefits and alternatives of the procedure were thoroughly explained, Informed consent was verified, confirmed and timeout was successfully executed by the treatment team. The patient was anesthetized with topical anesthesia and the Pentax [id number] endoscope was introduced through the mouth and advanced to the second portion of the duodenum. Retroflexed views revealed a hiatal hernia The gastroscope was then slowly withdrawn and removed. Duodenum normal-biopsy gastritis antrum-biopsy esophagitis distal esophagus-biopsy. ADVERSE EVENTS: There were no complications. IMPRESSIONS: 1. Duodenum normal-biopsy gastritis antrum-biopsy esophagitis distal esophagus-biopsy 2. Retroflexed views revealed a hiatal hernia RECOMMENDATIONS: 1. Await biopsy results. Biopsy results will not be ready for 7-10 days. If you don't hear from us in two weeks, call our office for biopsy results. 2. Anti-reflux regimen 3. Continue PPI 4. Avoid NSAIDS PATIENT CONDITION: stable DISPOSITION: Inpatient REPEAT EXAM: Return 1 year EGD Jes Mayorga MD eSigned: Jes Mayorga MD 04/11/2018 4:48 PM cc: PATIENT NAME: Divina Lugo MR#: [id number]
--- NOTE | 2018-04-11 16:50 | GIPROC ---
[facility] [address] [place] [address], [id number] COLONOSCOPY PROCEDURE REPORT EXAM DATE: 04/11/2018 PATIENT NAME: Divina Lugo MR #: [id number] BIRTHDATE: 1940 ENDOSCOPIST: Jes Mayorga MD ORDER #: [id number] INBOUND CUSTOMER SERVICE AGENT: Winston Barker MINERAL RESOURCES INSPECTOR STATUS: inpatient INDICATIONS: The patient is a 77 yr old female here for a colonoscopy due to gi bleeding , abdominal pain PROCEDURE PERFORMED: Colonoscopy, diagnostic MEDICATIONS: None and Per Anesthesia. PREP QUALITY: fair PREP TYPE:Other: ESTIMATED BLOOD LOSS: None CONSENT: The patient understands the risks and benefits of the procedure and understands that these risks include, but are not limited to: sedation, allergic reaction, infection, perforation and/or bleeding. Alternative means of evaluation and treatment include, among others: physical exam, x-rays, and/or surgical intervention. The patient elects to proceed with this endoscopic procedure. medical equipment was checked for proper function. Hand hygiene and appropriate measures for infection prevention was taken. After the risks, benefits and alternatives of the procedure were thoroughly explained, Informed consent was verified, confirmed and timeout was successfully executed by the treatment team. A digital exam revealed external hemorrhoids The Pentax [id number] endoscope was introduced through the anus and advanced to the cecum, which was identified by both the appendix and ileocecal valve. The instrument was then slowly withdrawn as the colon was fully examined. COLON FINDINGS: Diverticulosis sigmoid,descending. Retroflexed views revealed internal hemorrhoids and Retroflexed views revealed medium internal hemorrhoids The scope was then completely withdrawn from the patient and the procedure terminated. PROCEDURE WITHDRAWAL TIME:6minutes ADVERSE EVENTS: There were no complications. IMPRESSIONS: 1. Diverticulosis sigmoid,descending 2. Retroflexed views revealed internal hemorrhoids 3. Retroflexed views revealed medium internal hemorrhoids 4. Revealed external hemorrhoids RECOMMENDATIONS: 1. Benefiber 2 tsp daily 2. Yearly hemoccult 3. High fiber diet 4. Probiotics from any [facility] or health food store RECALL: Return 5 years Colonoscopy Jes Mayorga MD eSigned: Jes Mayorga MD 04/11/2018 4:49 PM cc:
[2018-04-11] MEDS ORDERED: Sodium Chlor 0.9% Inj 500 ML IV.SIG SCH (17:00)
[2018-04-11 17:49] VITALS: BP 118/55; PULSE 80; RESP 16; TEMP 98.6; O2SAT 98
== END 2018-04-11 18:46 | disposition home or self-care (01) ==
LOC: PHED 20:18 → PHEDA 20:18 → PH3 22:25
PROVIDERS: ADMIT Hospitalist; ATTEND Hospitalist
PROC: PANENDO (2018-04-11 16:17)
PROC: COLONOS (2018-04-11 16:17)